=== PATIENT | female | born 1995 | race Caucasian/White ===

== ENCOUNTER 2018-05-08 19:10 | Emergency (ER) | payer OTHER, SELFPAY ==
[2018-05-08 19:20] VITALS: BP 111/74; PULSE 81; RESP 18; TEMP 37.1; O2SAT 99; BMI 19.5
[2018-05-08 19:48] LABS: Bacteria Urine None Seen
[2018-05-08] MEDS: TRIMETH/SULFA 160/800 PREPACK 1 BOTTLE MISC (19:58)
--- NOTE | 2018-05-08 19:59 | ED_ITS ---
HPI - Female Genitourinary <Nydia Duarte PA-C - Last Filed: 05/08/18 21:35> General Chief complaint: Urogenital-Female Stated complaint: States she has a UTI Time Seen by Provider: 05/08/18 19:30 Source: patient Mode of arrival: ambulatory Limitations: no limitations History of Present Illness HPI Narrative: This 23-year-old female with a history of recurrent UTI comes to ED due to urinary symptoms that started today. She has dysuria, frequency and urgency. She denies any vaginal discharge or STD concerns. She denies any flank pain, nausea or vomiting. She denies possibility of and has Nexplanon implant in her arm. Related Data Home Medications Medication Instructions Recorded Confirmed LEVONORGESTREL (MARIA T) 13.5 mg VAGINAL #0 10/26/15 Previous Rx's Medication Instructions Recorded escitalopram oxalate [Lexapro] 10 mg PO QDAY #90 tab 02/27/17 fluconazole [Diflucan] 150 mg PO QWEEK #2 tab 03/18/17 fluconazole [Diflucan] 150 mg PO PRN PRN #2 tab 06/22/17 sulfamethoxazole-trimethoprim 1 tab PO BID #10 tab 06/22/17 sulfamethoxazole-trimethoprim 1 tab PO Q12H #8 tab 05/08/18 [Bactrim DS] Review of Systems <Nydia Duarte PA-C - Last Filed: 05/08/18 21:35> Review of Systems ROS Unobtainable: All systems reviewed & are unremarkable except as noted in HPI and below Exam <Nydia Duarte PA-C - Last Filed: 05/08/18 21:35> Narrative Exam Narrative: GENERAL APPEARANCE: Patient sitting comfortably, in no distress. LUNGS: Clear to auscultation bilaterally. HEART: Rate and rhythm regular without murmur, normal S1 and S2, no S3 or S4. ABDOMEN: Soft, NT, ND, +BS x 4 quadrants, no CVAT. Initial Vital Signs Initial Vital Signs: Vital Signs Temperature 98.7 F 05/08/18 19:20 Pulse Rate 81 05/08/18 19:20 Respiratory Rate 18 05/08/18 19:20 Blood Pressure 111/74 05/08/18 19:20 Pulse Oximetry 99 05/08/18 19:20 <Mitzy Reich MD - Last Filed: 05/09/18 03:58> Initial Vital Signs Initial Vital Signs: Vital Signs Temperature 98.7 F 05/08/18 19:20 Pulse Rate 81 05/08/18 19:20 Respiratory Rate 18 05/08/18 19:20 Blood Pressure 111/74 05/08/18 19:20 Pulse Oximetry 99 05/08/18 19:20 Course <Nydia Duarte PA-C - Last Filed: 05/08/18 21:35> Additional Information: Patient called following visit requesting Diflucan in case of yeast infection on antibiotics. She has used this previously. Prescription for Diflucan 150 mg 2 tabs was called in. Orders Ordered: ED Orders 05/08/18 19:27 Urine Culture Stat Urine Microscopic Stat Discontinued Medications Trimethoprim/Sulfamethoxazole (Bactrim Ds Prepack) 1 bottle MISC SEEINSTR ONE Stop: 05/08/18 19:50 Last Admin: 05/08/18 19:58 Dose: 1 bottle Vital Signs - 8 hr 05/08/18 20:02 Temperature 98.1 F Pulse Rate 70 Respiratory Rate 16 Blood Pressure 121/74 Pulse Oximetry 98 <Mitzy Reich MD - Last Filed: 05/09/18 03:58> Orders Ordered: ED Orders 05/08/18 19:27 Urine Culture Stat Urine Microscopic Stat Discontinued Medications Trimethoprim/Sulfamethoxazole (Bactrim Ds Prepack) 1 bottle MISC SEEINSTR ONE Stop: 05/08/18 19:50 Last Admin: 05/08/18 19:58 Dose: 1 bottle Vital Signs - 8 hr 05/08/18 20:02 Temperature 98.1 F Pulse Rate 70 Respiratory Rate 16 Blood Pressure 121/74 Pulse Oximetry 98 MDM - Female Genitourinary <Nydia Duarte PA-C - Last Filed: 05/08/18 21:35> Lab Data Lab Results 05/08/18 Range/Units 19:27 Urine RBC 0-1/hpf (0-5/HPF) Urine WBC 5-10/hpf H (0-5/HPF) Amorphous Sediment 2+ Urine Bacteria None seen (None) Ur Culture Indicated? Specimen cultured Point of Care Testing Test Results Negative Urine Dip Bedside Urine Glucose Negative Bedside Urine Bilirubin - Negative Bedside Urine Ketone - Negative Urine Specific [place] 1.005 Bedside Urine Occult Blood ++ Bedside Urine pH 7.0 Bedside Urine Protein - Negative Bedside Urine Urobilinogen - Negative Bedside Urine Nitrite - Negative Bedside Urine Leukocytes ++ 125 Esterase <Mitzy Reich MD - Last Filed: 05/09/18 03:58> Lab Data Lab Results 05/08/18 Range/Units 19:27 Urine RBC 0-1/hpf (0-5/HPF) Urine WBC 5-10/hpf H (0-5/HPF) Amorphous Sediment 2+ Urine Bacteria None seen (None) Ur Culture Indicated? Specimen cultured Point of Care Testing Test Results Negative Urine Dip Bedside Urine Glucose Negative Bedside Urine Bilirubin - Negative Bedside Urine Ketone - Negative Urine Specific [place] 1.005 Bedside Urine Occult Blood ++ Bedside Urine pH 7.0 Bedside Urine Protein - Negative Bedside Urine Urobilinogen - Negative Bedside Urine Nitrite - Negative Bedside Urine Leukocytes ++ 125 Esterase Discharge Plan Departure Patient Disposition: Home Clinical Impression: UTI (urinary tract infection) Discharge Date/Time: 05/08/18 20:02 Interventions: ED Discharge Assessment Last Done: 05/08/18 20:02 Instructions: DI for Urinary Tract Infection (UTI) Activity Restrictions/Additional Instructions: Please return if you have any acutely worsening symptoms, such as fever, vomiting, or flank/kidney pain. Take her 1st dose of antibiotics tonight and 2nd in the morning. I have sent a prescription in to [facility] for you to pick up man so you can continue it tomorrow while your urine cultures are pending. Please follow-up with your PCP if you are not feeling better by Thursday. You can take your [id number] azo that you have in the past as needed for urinary pain. Prescriptions: New sulfamethoxazole-trimethoprim [Bactrim DS] 800-160 mg tablet 1 tab PO Q12H Qty: 8 RF: 0 No Action LEVONORGESTREL (MARIA T) 13.5 mg Vaginal Qty: 0 RF: 0 escitalopram oxalate [Lexapro] 10 MG tablet 10 mg PO QDAY Qty: 90 RF: 3 fluconazole [Diflucan] 150 MG tablet 150 mg PO QWEEK Qty: 2 RF: 0 fluconazole [Diflucan] 150 MG tablet 150 mg PO PRN PRNQty: 2 RF: 0 sulfamethoxazole-trimethoprim 800 MG/160 MG tablet 1 tab PO BID Qty: 10 RF: 0 Referrals: Candice Leon DO [Primary Care Provider] -
[2018-05-08 20:02] VITALS: BP 121/74; PULSE 70; RESP 16; TEMP 36.7; O2SAT 98
[2018-05-08 20:03] LABS: Amorphous Sediment Urine 2+; Culture Indicated Urine Specimen Cultured; RBC Urine 0-1/HPF (0-5/HPF); WBC Urine 5-10/HPF (0-5/HPF)
== END 2018-05-08 20:02 | disposition home or self-care (01) ==
PROVIDERS: Emergency Provider Internal Medicine; Family Provider Family Medicine; PCP Family Medicine
DX: N39.0 Urinary tract infection, site not specified (principal)
CPT/HCPCS: 81003; 81015; 81025; 87077; 87086; 87186; 99283

== ENCOUNTER 2018-05-14 15:21 | Emergency (ER) | payer OTHER, SELFPAY ==
[2018-05-14 15:25] VITALS: BP 118/78; PULSE 89; RESP 16; TEMP 36.3; O2SAT 99
== END 2018-05-14 17:11 | disposition admitted as inpatient to this hospital (09) ==
PROVIDERS: Emergency Provider Emergency Medicine; Family Provider Family Medicine; PCP Family Medicine
DX: K13.79 Other lesions of oral mucosa (principal)
CPT/HCPCS: 99281; 99282

== ENCOUNTER → 2018-07-21 16:10 | Outpatient (CLI) | payer OTHER, SELFPAY | PROVIDERS: Family Provider Family Medicine; PCP Family Medicine; Visit Provider Family Medicine ==

== ENCOUNTER 2018-08-04 06:19 | Emergency (ER) | payer OTHER, SELFPAY ==
[2018-08-04 06:20] VITALS: BP 121/70; PULSE 76; RESP 18; TEMP 37; O2SAT 100
--- NOTE | 2018-08-04 06:42 | ED_ITS ---
HPI - Abdominal Pain General Chief Complaint: Abdominal Pain Stated Complaint: Abdominal pain since this morning Time Seen by Provider: 08/04/18 06:25 Source: patient Mode of arrival: ambulatory Limitations: no limitations History of Present Illness HPI narrative: Patient is a 23-year-old female here for evaluation of midline lower abdomen pain. She states that she noticed it yesterday. She states it was a fairly sudden onset however worsened as the day went on. No urinary symptoms. Has had some vaginal discharge over the past couple days. No change in bowel habits. No prior abdominal surgeries. States she went to sleep last night with the symptoms. Woke up with the symptoms this morning. She states that her and her boyfriend attempted to have intercourse this morning in the lower abdominal pain worsen. She also complains of nausea but no vomiting. patient did have a diagnosis of chlamydia when she was 18. She states that her symptoms do not feel like a urinary tract infection Related Data Previous Rx's Medication Instructions Recorded aripiprazole 5 mg tablet 5 mg PO DAILY #90 tab 06/14/18 cholecalciferol (vitamin D3) 2,000 2,000 unit PO DAILY #90 cap 06/14/18 unit capsule escitalopram 10 mg tablet 10 mg PO QDAY #90 tab 06/14/18 hydrocodone-acetaminophen [[place]ills] 1 tab PO Q6H PRN #10 tab 08/04/18 Allergies Allergy/AdvReac Type Severity Reaction Status Date / Time No Known Drug Allergies Allergy Verified 06/14/18 13:47 Review of Systems Constitutional Denies fever(s) and Denies headache(s) ENT Ears, Nose, Mouth, and Throat: Denies headache(s) Cardiovascular Denies chest pain and Denies dyspnea Respiratory Denies dyspnea Gastrointestinal Gastrointestinal: Reports abdominal pain, Denies change in stool character, Reports nausea and Denies vomiting Genitourinary Denies dysuria, Denies flank pain, Denies urinary incontinence, Denies urinary hesitancy, Denies urinary urgency and Reports vaginal discharge Integumentary/Breasts Denies rash Neurologic Denies headache(s) Hematologic/Lymphatic Denies easy bleeding and Denies easy bruising [facility] Medical History History of malignant melanoma (10/26/15) Tobacco use disorder (10/26/15) Anxiety (11/16/15) Gastroesophageal reflux disease (12/12/16) Recurrent urinary tract infection (12/12/16) Social History Smoking Status: Former smoker Exam Initial Vital Signs Initial Vital Signs: Vital Signs Temperature 98.6 F 08/04/18 06:20 Pulse Rate 76 08/04/18 06:20 Respiratory Rate 18 08/04/18 06:20 Blood Pressure 121/70 08/04/18 06:20 Pulse Oximetry 100 08/04/18 06:20 Const General: cooperative, well developed, well groomed and No acute distress Orientation: alert, awake and oriented x3 HENMT Head: normal to inspection and normocephalic Resp Effort & Inspection: normal respiratory effort Cardio Rate: regular rate GI Inspection: non-distended Palpation: soft, No firm and tender (Midline lower abdomen.) Back/Spine/Pelvis Back: No CVA tenderness Skin Lesions: no lesions Rashes: no rashes Neuro General: alert and awake Cognition: normal cognition Speech: speech normal Extrem General: normal to inspection and capillary refill normal Psych Affect: indifferent and other (Flat affect) Course Orders Ordered: Discontinued Medications Hydrocodone Bitart/Acetaminophen ([place] 5/325) 1 tab PO NOW ONE Stop: 08/04/18 07:19 Last Admin: 08/04/18 07:22 Dose: 1 tab Vital Signs - 8 hr 08/04/18 06:20 Temperature 98.6 F Pulse Rate 76 Respiratory Rate 18 Blood Pressure 121/70 Pulse Oximetry 100 MDM - Abdominal Pain Lab Data Lab Results 08/04/18 08/04/18 Range/Units 06:25 07:15 Urine Color Yellow Urine Appearance Clear Urine pH 5.5 (4.5-8.0) Ur Specific [place] 1.025 (1.000-1.035) Urine Protein Negative (Negative) Urine Glucose (UA) Negative (Negative) g/dL Urine Ketones Negative (NEGATIVE) Urine Occult Blood Negative (Negative) Urine Nitrate Negative (Negative) Urine Bilirubin Negative (NEGATIVE) Urine Urobilinogen 0.2 (0.2) E.U./dL Ur Leukocyte Esterase Negative (NEGATIVE) Urine RBC 0-1/hpf (0-5/HPF) Urine WBC 1-5/hpf (0-5/HPF) Urine Bacteria Few (2-10) H (None) Urine Mucus 3+ H (Negative) Ur Culture Indicated? Specimen cultured Ur Chlamydia DNA (PCR) Not detected N gonorrhoeae DNA (PCR) Not detected Point of care testing: Point of Care Testing Test Results Negative Urine Dip Bedside Urine Glucose Negative Bedside Urine Bilirubin - Negative Bedside Urine Ketone +/- 5 Urine Specific [place] 1.030 Bedside Urine Occult Blood - Negative Bedside Urine pH 5.5 Bedside Urine Protein +/- 15 Bedside Urine Urobilinogen +/- 1mg Bedside Urine Nitrite - Negative Bedside Urine Leukocytes +/- 15 Esterase MDM Narrative Medical decision making narrative: Patient does have a history of urinary tract infections she states this does not feel like prior infection. Her urinalysis today not consistent with the UTI. Pelvic ultrasound ordered. GC and chlamydia ordered as well. Care turned over to day provider at change of shift. Discharge Plan Departure Patient Disposition: Home Clinical Impression: Ovarian cyst rupture Discharge Date/Time: 08/04/18 09:30 Interventions: ED Discharge Assessment Last Done: 08/04/18 09:27 Instructions: DI for Ovarian Cyst Activity Restrictions/Additional Instructions: Your ultrasound shows that you have a ruptured ovarian cyst on the right. There is some fluid from this that has leaked down into your pelvis, and the combination of these things is most likely the cause of your pain. The pain often lasts for 1-3 days, and then resolves on its own. The cyst may form again, or it may be gone for good. No cyst was noted on your left side. If you have ongoing trouble with this, then you will need to follow up with the [facility]. You may take the pain medication, in the meantime, as needed. Prescriptions: New hydrocodone-acetaminophen [Mills] 5-325 mg tablet 1 tab PO Q6H PRN (Reason: pain) Qty: 10 RF: 0 No Action escitalopram oxalate [Lexapro] 10 mg tablet 10 mg PO QDAY Qty: 90 RF: 3 aripiprazole [Abilify] 5 mg tablet 5 mg PO DAILY Qty: 90 RF: 1 cholecalciferol (vitamin D3) 2,000 unit capsule 2,000 unit PO DAILY Qty: 90 RF: 3 Referrals: Marina Monteiro MD [Physician] - Candice Leon DO [Primary Care Provider] -
[2018-08-04 06:45] LABS: Appearance Urine UA CLEAR; Bilirubin Urine UA NEGATIVE (NEGATIVE); Color Urine UA YELLOW; Glucose Urine UA NEGATIVE (Negative); Ketones Urine UA NEGATIVE (NEGATIVE); Leukocyte Esterase Urine UA NEGATIVE (NEGATIVE); Nitrite Urine UA NEGATIVE (Negative); Occult Blood Urine UA NEGATIVE (Negative); Protein Urine UA NEGATIVE (Negative); Specific Gravity Urine UA 1.025 (1.000-1.035); Urobilinogen Urine UA 0.2 E.U./dL (0.2); pH Urine UA 5.5 (4.5-8.0)
[2018-08-04 07:13] LABS: Bacteria Urine Few (2-10); Culture Indicated Urine Specimen Cultured; Mucus Urine 3+ (Negative); RBC Urine 0-1/HPF (0-5/HPF); WBC Urine 1-5/HPF (0-5/HPF)
--- NOTE | 2018-08-04 07:16 | DI.US.S_ITS ---
PROCEDURE: US PELVIC COMPLETE INDICATIONS: PAIN TECHNIQUE: Real-time scanning was performed of the pelvic organs, with image documentation. Additional endovaginal scanning was necessary due to incomplete visualization of the adnexal and endometrial structures by transabdominal scanning. COMPARISON: None. FINDINGS: Transabdominal scanning: Limited scanning through the kidneys shows no hydronephrosis. No pathologic free abdominal or pelvic fluid. Endovaginal scanning: Uterus: Uterus is normal in size at 8.0 x 3.5 x 4.5 cm. The endometrium measures 4.0 mm in combined thickness. Ovaries: Involuting physiologic right ovarian cyst measuring 1.7 x 1.1 x 2.0 cm; otherwise normal ovaries. Mild amount of anechoic free fluid within the posterior cul-de-sac. IMPRESSION: Regressing physiologic cyst involving the right ovary and mild amount of simple free fluid within the posterior cul-de-sac. Dictated by: Nirav HAN Interpreted: Zoran Youngblood MD on 08/04/2018 at 8:32 Approved by: Zoran Youngblood M.D. on 08/04/2018 at 11:06
[2018-08-04] MEDS: HYDROCODONE/ACET 5/325 TABLET 1 TAB PO (07:22)
[2018-08-04 08:49] LABS: Urine N gonorrhoeae NOT DETECTED
[2018-08-04 08:54] LABS: Urine Chlamydia NOT DETECTED
[2018-08-04 09:13] VITALS: BP 98/58; PULSE 70; RESP 17; TEMP 36.8; O2SAT 99
--- NOTE | 2018-08-04 09:30 | PC.NURSE ---
Note for school provided by
== END 2018-08-04 09:30 | disposition home or self-care (01) ==
PROVIDERS: Emergency Medicine; Emergency Provider Emergency Medicine; Family Provider Family Medicine; PCP Family Medicine
DX: N83.209 Unspecified ovarian cyst, unspecified side (principal); R11.0 Nausea
CPT/HCPCS: 76830; 76856; 81001; 81003; 81025; 87086; 87491; 87591; 99283

== ENCOUNTER 2018-08-07 20:18 | Emergency (ER) | payer OTHER, SELFPAY ==
[2018-08-07 20:20] VITALS: BP 123/79; PULSE 90; RESP 20; TEMP 37.4; O2SAT 100
--- NOTE | 2018-08-07 20:58 | ED.FEMALEGU ---
HPI - Female Genitourinary <Nydia Duarte PA-C - Last Filed: 08/07/18 22:05> General Chief complaint: Urogenital-Female Stated complaint: abdominal pain, states she has a cyst Time Seen by Provider: 08/07/18 20:25 Source: patient Mode of arrival: ambulatory Limitations: no limitations History of Present Illness HPI Narrative: This 23-year-old female was seen here 3 days ago with abdominal pain and ruptured ovarian cyst. She states she did not call her PCP for follow-up. She states that she was doing okay earlier today, had sex and then had severe pain with 2 episodes of vomiting. She states that she called the nurse line and was advised to come here. Pain is in the same area, very lower abdomen and pelvic area. She states that pain is better now. Nausea is better now. She has not had recurrent vomiting since arrival. She denies any new symptoms such as fever today, has had maybe some slight chills in the course of this. She has not had new or changed pain. She has not had any new vaginal discharge or bleeding. No new urinary symptoms or other new complaints today on systems review. She did try to take 1 of her pain pills afterwards and kept it down but felt nauseous. Related Data Previous Rx's Medication Instructions Recorded aripiprazole 5 mg tablet 5 mg PO DAILY #90 tab 06/14/18 cholecalciferol (vitamin D3) 2,000 2,000 unit PO DAILY #90 cap 06/14/18 unit capsule escitalopram 10 mg tablet 10 mg PO QDAY #90 tab 06/14/18 hydrocodone-acetaminophen [[place]] 1 tab PO Q6H PRN #10 tab 08/04/18 Allergies Allergy/AdvReac Type Severity Reaction Status Date / Time No Known Drug Allergies Allergy Verified 06/14/18 13:47 Review of Systems <Nydia Duarte PA-C - Last Filed: 08/07/18 22:05> Review of Systems ROS Unobtainable: All systems reviewed & are unremarkable except as noted in HPI and below PFSH <Nydia Duarte PA-C - Last Filed: 08/07/18 22:05> Medical History (Updated 08/07/18 @ 21:51 by Nydia Duarte PA-C) History of malignant melanoma (10/26/15) Tobacco use disorder (10/26/15) Anxiety (11/16/15) Gastroesophageal reflux disease (12/12/16) Recurrent urinary tract infection (12/12/16) Surgical History (Updated 08/07/18 @ 21:22 by Nydia Duarte PA-C) No history of previous surgery (Acute) Family History Other Family history non-contributory Social History Smoking Status: Former smoker Social History Smoking Status: Former smoker Exam <Nydia Duarte PA-C - Last Filed: 08/07/18 22:05> Narrative Exam Narrative: GENERAL APPEARANCE: Patient sitting comfortably, in no distress. HEENT: PERRL, EOMI, no scleral icterus NECK: Supple LUNGS: Clear to auscultation bilaterally. HEART: Rate and rhythm regular, normal S1 and S2, no S3 or S4. ABDOMEN: Soft, nondistended, bowel sounds present x 4 quadrants, no masses palpable, no hepatosplenomegaly. moderate suprapubic tenderness without guarding or rebound, no CVAT. EXTREMITIES: No edema DERMATOLOGIC: No jaundice or exanthem NEUROLOGIC: Alert and oriented with normal speech and coordination Initial Vital Signs Initial Vital Signs: Vital Signs Temperature 99.3 F 08/07/18 20:20 Pulse Rate 90 08/07/18 20:20 Respiratory Rate 20 08/07/18 20:20 Blood Pressure 123/79 08/07/18 20:20 Pulse Oximetry 100 08/07/18 20:20 <Abelardo Cherry DO - Last Filed: 08/08/18 01:56> Initial Vital Signs Initial Vital Signs: Vital Signs Temperature 99.3 F 08/07/18 20:20 Pulse Rate 90 08/07/18 20:20 Respiratory Rate 20 08/07/18 20:20 Blood Pressure 123/79 08/07/18 20:20 Pulse Oximetry 100 08/07/18 20:20 Course <Nydia Duarte PA-C - Last Filed: 08/07/18 22:05> Additional Information: Patient reports feeling significantly improved during her stay, no recurrent vomiting, pain is better. She was feeling better earlier today, pain likely secondary to intercourse with existing free fluid/inflammation related to recently ruptured cyst. She was given Zofran for at home if needed, she has [place] at home if needed. She agreed to return if any acutely worsening symptoms or changes again, otherwise will follow up with PCP next week Orders Ordered: Discontinued Medications Hydrocodone Bitart/Acetaminophen ([place] 5/325) 1 tab PO NOW ONE Stop: 08/07/18 21:05 Last Admin: 08/07/18 21:11 Dose: 1 tab Ondansetron HCl (Zofran Odt) 4 mg SL NOW ONE Stop: 08/07/18 21:05 Last Admin: 08/07/18 21:12 Dose: 4 mg Ondansetron HCl (Zofran Odt Prepack) 1 bottle MISC SEEINSTR ONE Stop: 08/07/18 21:47 Last Admin: 08/07/18 22:03 Dose: 1 bottle Vital Signs - 8 hr 08/07/18 20:20 Temperature 99.3 F Pulse Rate 90 Respiratory Rate 20 Blood Pressure 123/79 Pulse Oximetry 100 Repeat temp prior to discharge 98.1 <Abelardo Cherry DO - Last Filed: 08/08/18 01:56> Orders Ordered: Discontinued Medications Hydrocodone Bitart/Acetaminophen ([place] 5/325) 1 tab PO NOW ONE Stop: 08/07/18 21:05 Last Admin: 08/07/18 21:11 Dose: 1 tab Ondansetron HCl (Zofran Odt) 4 mg SL NOW ONE Stop: 08/07/18 21:05 Last Admin: 08/07/18 21:12 Dose: 4 mg Ondansetron HCl (Zofran Odt Prepack) 1 bottle MISC SEEINSTR ONE Stop: 08/07/18 21:47 Last Admin: 08/07/18 22:03 Dose: 1 bottle Vital Signs - 8 hr 08/07/18 20:20 Temperature 99.3 F Pulse Rate 90 Respiratory Rate 20 Blood Pressure 123/79 Pulse Oximetry 100 Discharge Plan Departure Patient Disposition: Home Clinical Impression: Pelvic pain Vomiting Qualifiers: Vomiting type: unspecified Vomiting Intractability: non-intractable Nausea presence: with nausea Qualified Code(s): R11.2 - Nausea with vomiting, unspecified Discharge Date/Time: 08/07/18 22:08 Interventions: ED Discharge Assessment Last Done: 08/07/18 22:07 Instructions: DI for Pelvic Pain, Nausea and Vomiting-Adult Activity Restrictions/Additional Instructions: Please return as we discussed if you have any acutely worsening symptoms, or new symptoms such as persistent vomiting or fever. Otherwise, please take the nausea medicine that we gave you up to every 8 hours if you need it, and continue your pain medicine that you already have if needed. Please avoid sex until you are feeling well as it may take the fluid in your pelvis from the cyst some time to reabsorb. Please call your PCP on Thursday and arrange follow-up next week to make sure that you are feeling better as expected. Prescriptions: No Action escitalopram oxalate [Lexapro] 10 mg tablet 10 mg PO QDAY Qty: 90 RF: 3 aripiprazole [Abilify] 5 mg tablet 5 mg PO DAILY Qty: 90 RF: 1 cholecalciferol (vitamin D3) 2,000 unit capsule 2,000 unit PO DAILY Qty: 90 RF: 3 hydrocodone-acetaminophen [[place]] 5-325 mg tablet 1 tab PO Q6H PRN (Reason: pain) Qty: 10 RF: 0 Referrals: Candice Leon DO [Primary Care Provider] - <Abelardo Cherry DO - Last Filed: 08/08/18 01:56> Cosign ED Attending Migdalia Attestation: I was immediately available in the department for consultation. Documentation has been reviewed. I agree with assessment and plan.
[2018-08-07] MEDS: HYDROCODONE/ACET 5/325 TABLET 1 TAB PO (21:11)
[2018-08-07] MEDS: ONDANSETRON 4 MG ODT SL (21:12)
[2018-08-07] MEDS: ONDANSETRON 4 MG ODT PREPACK 1 BOTTLE MISC (22:03)
--- NOTE | 2018-08-09 17:17 | CM.SWNOTE ---
Follow up call JOB ANALYST called pt for a Emergency Dept follow up call. Pt stated that she was still not feeling well, but has followed up and called her PCP. She is awaiting a return call. She is aware that she can return to the ED if necessary and was appreciative of the call.
== END 2018-08-07 22:08 | disposition home or self-care (01) ==
PROVIDERS: Emergency Provider Internal Medicine; PCP Family Medicine
DX: R10.2 Pelvic and perineal pain (principal); R11.2 Nausea with vomiting, unspecified
CPT/HCPCS: 99282; 99283

== ENCOUNTER 2018-10-29 09:59 | Day surgery (SDC) | payer OTHER, SELFPAY ==
[2018-10-13 08:24] VITALS: BMI 19.8
[2018-10-29] VITALS (9 sets, daily range): BP systolic 104–118; BP diastolic 60–81; PULSE 61–98; RESP 10–15; TEMP 36.3–37.1; O2SAT 96–100; BMI 21.4
[2018-10-29] MEDS: LACTATED RINGERS 1,000 ML 42 ML IV (10:34)
--- NOTE | 2018-10-29 10:56 | PM.HP.1 ---
History of Present Illness Date Patient Seen: 10/29/18 Time Patient Seen: 10:56 Chief complaint: [id number] PELVIC Narrative: Patient is a 23-year-old with a right ovarian cyst and pelvic pain She is here for a laparoscopic removal of right ovarian cyst and possible fulguration of endometriosis Patient History Medical History (Updated 10/13/18 @ 08:33 by Martina Ritchie RN) History of malignant melanoma (10/26/15) Tobacco use disorder (10/26/15) Anxiety (11/16/15) Gastroesophageal reflux disease (12/12/16) Recurrent urinary tract infection (12/12/16) Depression (Acute) Surgical History (Updated 08/07/18 @ 21:22 by Nydia Duarte PA-C) No history of previous surgery (Acute) Family History Other Family history non-contributory Social History household members: significant other Smoking Status: Former smoker Family & Social History Social History: household members significant other Tobacco & Substance use: Smoking Status Former smoker alcohol intake frequency 0-2 drinks per day Substance Use Type marijuana Meds Home Medications Medication Instructions Recorded Confirmed Type cholecalciferol (vitamin D3) 2,000 2,000 unit PO DAILY #90 cap 09/20/18 10/29/18 Rx unit capsule aripiprazole 5 mg tablet 5 mg PO DAILY #90 tab 10/27/18 10/29/18 Rx escitalopram 10 mg tablet 10 mg PO QDAY #90 tab 10/27/18 10/29/18 Rx oxycodone-acetaminophen [Percocet] 1 tab PO Q4-6H PRN #20 tab 10/29/18 Rx Allergies Allergy/AdvReac Type Severity Reaction Status Date / Time No Known Drug Allergies Allergy Verified 10/29/18 10:17 Exam Vital Signs (past 8 hours): - 10/29/18 10:22 Temperature 98.8 F Pulse Rate 84 Respiratory Rate 15 Blood Pressure 117/71 Pulse Oximetry 100 Oxygen Delivery Method Room Air Narrative Exam Narrative: HEENT: No thyromegaly, no anterior cervical or supraclavicular lymphadenopathy. Lungs:Clear to auscultation bilaterally, no wheezes. Cardiovascular: Regular rate and rhythm, no murmurs, rubs, or gallops. Abdomen: No scars. No hepatosplenomegaly. No masses palpable. External genitalia: Normal Vagina: Normal Cervix: Normal Bimanual exam: 6 Week size uterus. Mobile. Rectal: No masses. Assessment & Plan Assessment & Plan narrative: Assessment: 23-year-old with a right ovarian cyst, dyspareunia, and pelvic pain Plan: Diagnostic laparoscopy with excision of right ovarian cyst and possible fulguration of endometriosis The risks, benefits, and alternatives to the procedure were explained to the patient. The risks including bleeding, infection, injury to the bowel, bladder, or ureters. She understands these risks and agrees to proceed. A full par Q was held and consent form was signed Time Spent With Patient Time with patient: 15-24 minutes
--- NOTE | 2018-10-29 10:58 | PM.PREOP ---
Pre-operative Note Interval Note History & Physical reviewed/Exam performed by Physician: Yes Changes to H&P: No
--- NOTE | 2018-10-29 11:18 | SUR.OPER ---
Lithotomy on padded OR bed, head on pillow, arms secured on padded arm boards at <90 degrees abduction. Legs secured in padded yellow fins stirrups.
[2018-10-29] MEDS: BUPIVACAINE 0.5% W/ EPI (PF) VIAL 30 ML INJ (11:28)
[2018-10-29] MEDS: HYDROMORPHONE 2 MG INJ 0.5 MG IV ×4 (11:59→12:26)
--- NOTE | 2018-10-29 12:03 | SUR.PHASEI ---
1159 Tearful, states that she is having pelvic pain 12/14. Reassured, calms when spoken to. Asking questions of Dr. Reeves. Skin warm and dry, Resp even and regular, denies nausea.
[2018-10-29] MEDS: OXYCODONE/ACETAMINOPHEN 5/325 TABLET 1 TAB PO (12:12)
--- NOTE | 2018-10-29 12:23 | SUR.PHASEI ---
HOB elevated, calm, tolerating PO well.
--- NOTE | 2018-10-29 12:28 | SUR.PHASEI ---
1226 rates pain at a 5, no longer improving, IV rx given per patient desire. No nausea, VSS. Stable
--- NOTE | 2018-10-29 12:48 | SUR.PHASEI ---
Drowsy, relaxed, pain 3/10; no nausea, No drainage at sites or vaginally. Stable. Preparing to transfer to [facility].
--- NOTE | 2018-11-03 06:27 | P.OP_ITS ---
Operative Date/Time/Diagnoses Date of procedure: 10/29/18 Time of procedure: 12:45 Pre-op diagnosis: Pelvic pain Dyspareunia Dysmenorrhea Right ovarian cyst Left ovarian cyst Post-op diagnosis: same Procedure: Procedures Operation Date: 10/29/18 11:15 Actual Procedures Side Surgeon p Laparoscopy, Aspiration of right ovarian cyst, cauterization left ovarian cyst Dedra Washington MD Indications: Pelvic pain Dyspareunia Dysmenorrhea Bilateral ovarian cyst Surgeon: Dedra aWshington Anesthesia Type: General Operative Notes Findings: Six week size anteverted uterus. There was a possible extra horn on t he left side of the uterus. 4 cm right ovarian cyst. 1 cm left ovarian cyst. Normal liver and gallbladder. Normal appendix. Closure Type: primary Estimated blood loss (mL): 5 Blood products transfused: none Procedure in detail: After informed consent was obtained, the patient was taken to the operating room where she was placed in the dorsal supine position. After adequate general endotracheal anesthesia was achieved, she was placed in the dorsal lithotomy position, and prepped and draped in the usual sterile fashion. A time-out was performed. A bivalve speculum was placed into the vagina and the anterior lip of the cervix was grasped with a single-tooth tenaculum. The cervical os was sequentially dilated until the Zumi uterine manipulator could pass easily into the endometrial cavity. The single-tooth tenaculum was removed from the anterior lip of the cervix. The bivalve speculum was removed from the vagina. Attention was then turned to the abdomen where 6 cc of 0.5% Marcaine with epinephrine were injected in the umbilical fold. A 5 mm incision was made. The Veress needle was placed into the peritoneal cavity, and its placement confirmed by aspiration drop test. The abdominal cavity was insufflated with 3.2 L of CO2. The Veress needle was removed, and a 5 mm trocar was placed without difficulty. A 2nd incision was made after 6 cc of 0.5% Marcaine with epinephrine were injected above the pubic symphysis. A 2nd 5 mm trocar was placed without difficulty. A 3rd incision was made on the left side midway between the pubic symphysis and umbilicus. A 3rd 5 mm trocar was placed under direct visualization. Using the probe both ovaries were identified. On the left side the cyst was grasped and excised with the PlasmaKinetic was settings at 40 w. On the right side there was a simple cyst measuring 4 cm. This was aspirated of approximately 12 cc of clear fluid. The cyst was cauterized once it was collapsed. There was no evidence of endometriosis in the anterior or posterior cul-de-sacs, or bilateral ovarian fossas. The instruments were removed from the abdomen. The CO2 was allowed to escape. The incisions were repaired with 4 0 Biosyn in a subcuticular fashion. Steri-Strips, 2 x 2, and op site were placed. The Zumi uterine manipulator was removed from the uterus. Sponge, lap, and instrument counts were correct x2. The patient tolerated the procedure well, and was taken to PACU in stable condition. Complications: none Post-operative Condition: stable Disposition: PACU Plan for aftercare: Home after recovery
== END 2018-10-29 13:06 | disposition home or self-care (01) ==
PROVIDERS: PCP Family Medicine; Visit Provider Obstetrics & Gynecology
PROC: (CPT 49320; principal; 2018-10-29 11:15)
DX: R10.2 Pelvic and perineal pain (principal); N94.10 Unspecified dyspareunia; N94.6 Dysmenorrhea, unspecified; N83.201 Unspecified ovarian cyst, right side; N83.202 Unspecified ovarian cyst, left side
CPT/HCPCS: 58662; 49322; J1100; J1170; J1885; J2250; J2405; J2704; J3010

== ENCOUNTER 2018-10-30 06:53 | Emergency (ER) | payer OTHER, SELFPAY ==
[2018-10-30 06:59] VITALS: BP 130/7; PULSE 75; RESP 18; TEMP 37.3; O2SAT 100
[2018-10-30 07:35] LABS: Bacteria Urine Moderate (10-30); Culture Indicated Urine Specimen Cultured; RBC Urine 1-5/HPF (0-5/HPF); Squamous Epithelial Cell Urine 1-5 /HPF (0-5/HPF); WBC Urine 5-10/HPF (0-5/HPF)
--- NOTE | 2018-10-30 07:38 | ED.FEMALEGU ---
HPI - Female Genitourinary General Chief complaint: Urogenital-Female Stated complaint: UTI Time Seen by Provider: 10/30/18 07:30 Source: patient Mode of arrival: ambulatory Limitations: no limitations History of Present Illness HPI Narrative: Patient is a 23-year-old female who presents with painful urination. She has a history of frequent UTIs this feels similar. She actually had an ovarian cyst removed yesterday she still has some pain in her abdomen but mostly pain she says into urinates. She vomited once about 12 hours after surgery she still feels a little nauseous but no further vomiting or fever. MD Complaint: dysuria and UTI Related Data Previous Rx's Medication Instructions Recorded cholecalciferol (vitamin D3) 2,000 2,000 unit PO DAILY #90 cap 09/20/18 unit capsule aripiprazole 5 mg tablet 5 mg PO DAILY #90 tab 10/27/18 escitalopram 10 mg tablet 10 mg PO QDAY #90 tab 10/27/18 oxycodone-acetaminophen [Percocet] 1 tab PO Q4-6H PRN #20 tab 10/29/18 ciprofloxacin HCl [Cipro] 500 mg PO Q12H #14 tab 10/30/18 fluconazole [Diflucan] 200 mg PO DAILY #1 tab 10/30/18 ondansetron 4 mg PO Q6-8H PRN #10 tab 10/30/18 Allergies Allergy/AdvReac Type Severity Reaction Status Date / Time No Known Drug Allergies Allergy Verified 10/29/18 10:17 Review of Systems Review of Systems GENERAL: Denies chills, fatigue, malaise, fever, sweats, travel HEENT: Denies sinus pain, ear pain, sore throat, difficulty swallowing, neck pain RESPIRATORY: Denies dyspnea, cough, wheezing, hemoptysis, sputum. CARDIOVASCULAR: Denies chest pain, palpitations, orthopnea, edema GASTROINTESTINAL: See HPI : See HPI MUSCULOSKELETAL: Denies weakness, joint pain, or bony pain SKIN: No rash, no erythema, no pruritus NEUROLOGIC: Denies weakness, dizziness, headache, numbness, change in speech, confusion PSYCHIATRIC: No concerning psychosocial issues. 12 point review of systems is negative except for those stated above and HPI [facility] Medical History History of malignant melanoma (10/26/15) Tobacco use disorder (10/26/15) Anxiety (11/16/15) Gastroesophageal reflux disease (12/12/16) Recurrent urinary tract infection (12/12/16) Depression (Acute) Surgical History No history of previous surgery (Acute) Family History Other Family history non-contributory Social History household members: significant other Smoking Status: Former smoker Family History Other Family history non-contributory Social History household members: significant other Smoking Status: Former smoker Exam Initial Vital Signs Initial Vital Signs: Vital Signs Temperature 99.1 F 10/30/18 06:59 Pulse Rate 75 10/30/18 06:59 Respiratory Rate 18 10/30/18 06:59 Blood Pressure 130/7 L 10/30/18 06:59 Pulse Oximetry 100 10/30/18 06:59 GENERAL: Well-appearing, well-nourished and in no acute distress. HEENT: Head atraumatic,EOMI, pupils reactive, face symmetric CARDIOVASCULAR: Regular rate and rhythm without murmurs, rubs or gallops. RESPIRATORY: Breath sounds equal bilaterally, no wheezes rales or rhonchi. ABDOMEN: Soft, mild diffuse tenderness no guarding no rebound no distention. Normoactive bowel sounds all 4 quadrants. No guarding or rebound. Incisions sites noted clean and dry bandages still place : No CVA tenderness EXTREMITIES: Normal range of motion, no clubbing or edema. Neurovascularly intact NEUROLOGICAL: Alert and oriented x4.Normal gait and speech. Cranial nerves II through XII grossly intact. SKIN: Warm, dry, no laceration, no petechiae, no rashes or lesions. Course Orders Ordered: ED Orders 10/30/18 07:20 Urine Culture Stat Urine Microscopic Stat Vital Signs - 8 hr 10/30/18 06:59 Temperature 99.1 F Pulse Rate 75 Respiratory Rate 18 Blood Pressure 130/7 L Pulse Oximetry 100 MDM - Female Genitourinary Lab Data Lab Results 10/30/18 Range/Units 07:20 Urine RBC 1-5/hpf (0-5/HPF) Urine WBC 5-10/hpf H (0-5/HPF) Ur Squamous Epith Cells 1-5 /hpf (0-5/HPF) Urine Bacteria Moderate (10-30) H (None) Ur Culture Indicated? Specimen cultured Point of Care Testing Test Results Negative Urine Dip Bedside Urine Glucose Negative Bedside Urine Bilirubin - Negative Bedside Urine Ketone - Negative Urine Specific [place] 1.010 Bedside Urine Occult Blood +++ Bedside Urine pH 6.5 Bedside Urine Protein - Negative Bedside Urine Urobilinogen - Negative Bedside Urine Nitrite - Negative Bedside Urine Leukocytes +++ 500 Esterase [facility] Narrative Medical decision making narrative: Patient states that the from his work for her multiple times past. Her last UTI was in July 2018. Discharge Plan Departure Patient Disposition: Home Clinical Impression: UTI (urinary tract infection) Qualifiers: Urinary tract infection type: acute cystitis Hematuria presence: with hematuria Qualified Code(s): N30.01 - Acute cystitis with hematuria Instructions: DI for Urinary Tract Infection (UTI) Activity Restrictions/Additional Instructions: *You have been diagnosed with UTI *What to do: Increased fluid intake *Continue to take medications as directed Cipro 500 mg twice a day for 7 days Diflucan 200 mg after he finished Cipro Zofran 4 mg every 6-8 hours if needed for nausea or vomiting By radium 200 mg every 8 hours if needed for painful urination *Follow up with your primary care provider in 2-3 days *Return to ER if you should have increasing abdominal pain, fevers, persistent vomiting or any new, worsening or concerning symptoms Prescriptions: New fluconazole [Diflucan] 200 mg tablet 200 mg PO DAILY Qty: 1 RF: 0 ciprofloxacin HCl [Cipro] 500 mg tablet 500 mg PO Q12H Qty: 14 RF: 0 ondansetron 4 mg tablet,disintegrating 4 mg PO Q6-8H PRN (Reason: nausea and vomiting) Qty: 10 RF: 0 No Action cholecalciferol (vitamin D3) 2,000 unit capsule 2,000 unit PO DAILY Qty: 90 RF: 3 aripiprazole [Abilify] 5 mg tablet 5 mg PO DAILY Qty: 90 RF: 1 escitalopram oxalate [Lexapro] 10 mg tablet 10 mg PO QDAY Qty: 90 RF: 1 oxycodone-acetaminophen [Percocet] 5-325 mg tablet 1 tab PO Q4-6H PRN (Reason: pain) Qty: 20 RF: 0 Referrals: Candice Leon DO [Primary Care Provider] -
[2018-10-30 08:20] VITALS: TEMP 36.9
== END 2018-10-30 08:21 | disposition home or self-care (01) ==
PROVIDERS: Emergency Provider Emergency Medicine; PCP Family Medicine
DX: N30.01 Acute cystitis with hematuria (principal)
CPT/HCPCS: 81003; 81015; 81025; 87077; 87086; 87186; 99282; 99283

== ENCOUNTER → 2019-06-20 10:19 | Outpatient (CLI) | payer OTHER, SELFPAY | PROVIDERS: PCP Family Medicine; Visit Provider Family Medicine | DX: N39.0 Urinary tract infection, site not specified (principal) | CPT/HCPCS: 87086 ==

== ENCOUNTER → 2019-06-22 14:12 | Outpatient (CLI) | payer OTHER, SELFPAY ==
[2019-06-22 14:47] LABS: Add Manual Diff / Slide Review NO; Basophils Absolute Auto 0 /uL (0-100); Basophils Percent Auto 0.8 % (0-2); Eosinophils Absolute Auto 100 /uL (0-450); Eosinophils Percent Auto 1.3 % (2-4); Hematocrit 39.1 % (36-46); Hemoglobin 13.3 g/dL (12.0-16.0); Lymphocytes Absolute Auto 1900 /uL (1100-4500); Lymphocytes Percent Auto 31.3 % (25-40); Mean Corpuscular HGB Conc 33.9 % (30-36); Mean Corpuscular Hemoglobin 30.7 PG (26-34); Mean Corpuscular Volume 90.7 fL (80-100); Monocytes Absolute Auto 600 /uL (0-900); Neutrophils Absolute Auto 3400 /uL (1500-7000); Neutrophils Percent Auto 56.6 % (50-75); Platelet Count 287 X10^3/uL (150-400); Red Blood Cell Count 4.32 X10^6/uL (4.0-5.2); Red Cell Distribution Width 12.4 % (11.6-14.8)
[2019-06-22 14:59] LABS: Hemoglobin A1C% w Est Avg Glu 4.9 % (4.0-6.0)
[2019-06-22 15:52] LABS: Free T3, Triiodothyronine Free 2.87 pg/mL (2.77-5.27); Free T4, Direct Thyroxine 0.74 ng/dL (0.78-2.19)
[2019-06-22 16:05] LABS: Thyroid Stimulating Hormone 4.13 uIU/mL (0.47-4.68)
== END ==
PROVIDERS: PCP Family Medicine; Referring Provider Family Medicine; Visit Provider Family Medicine
DX: M81.0 Age-related osteoporosis without current pathological fracture (principal); R63.5 Abnormal weight gain
CPT/HCPCS: 36415; 83036; 84439; 84443; 84481; 85025

== ENCOUNTER → 2019-06-28 09:15 | Outpatient (CLI) | payer OTHER, SELFPAY ==
[2019-06-28 10:05] LABS: Appearance Urine UA CLEAR; Bilirubin Urine UA NEGATIVE (NEGATIVE); Color Urine UA ORANGE; Glucose Urine UA TRACE g/dL (Negative); Ketones Urine UA NEGATIVE (NEGATIVE); Leukocyte Esterase Urine UA TRACE (NEGATIVE); Nitrite Urine UA POSITIVE (Negative); Occult Blood Urine UA 1+ (Negative); Protein Urine UA 1+ (Negative); Specific Gravity Urine UA 1.025 (1.000-1.035)
[2019-06-28 10:18] LABS: pH Urine UA 5.5 (4.5-8.0)
[2019-06-28 10:19] LABS: Bacteria Urine Moderate (10-30); Culture Indicated Urine Specimen Cultured; Mucus Urine 2+ (Negative); RBC Urine 0-1/HPF (0-5/HPF); Squamous Epithelial Cell Urine 1-5 /HPF (0-5/HPF); WBC Urine 1-5/HPF (0-5/HPF)
== END ==
PROVIDERS: PCP Family Medicine; Referring Provider Family Medicine; Visit Provider Family Medicine
DX: N39.0 Urinary tract infection, site not specified (principal)
CPT/HCPCS: 81001; 87086

== ENCOUNTER → 2019-07-18 09:56 | Outpatient (CLI) | payer OTHER, SELFPAY ==
[2019-07-18 10:44] LABS: BUN Creatinine Ratio 18.6 (6-22); Blood Urea Nitrogen 11 mg/dL (7-17); Calcium 9.2 mg/dL (8.4-10.2); Carbon Dioxide 26 mmol/L (22-32); Chloride 103 mmol/L (98-107); Estimated Glomerular Filt Rate > 60.0 mL/min (>60); Glucose 95 mg/dL (70-100); HEMOLYSIS < 15 (0-50); Potassium 3.8 mmol/L (3.4-5.1); Sodium 136 mmol/L (137-145)
[2019-07-18 11:19] LABS: Ferritin 23 ng/mL (6-137)
[2019-07-18 11:47] LABS: Vitamin D 25 Hydroxy (D3) 29.5 ng/mL (30.0-100.0)
[2019-07-19 17:17] LABS: Anti Thyroglobulin Antibody <1.0 IU/mL (0.0-0.9); Thyroid Peroxidase Antibodies 33 IU/mL (0-34)
[2019-07-21 07:11] LABS: Triiodothyronine T3 Reverse 22.9 ng/dL (9.2-24.1)
== END ==
PROVIDERS: PCP Family Medicine; Referring Provider Family Medicine; Visit Provider Family Medicine
DX: E03.9 Hypothyroidism, unspecified (principal); M81.0 Age-related osteoporosis without current pathological fracture; N39.0 Urinary tract infection, site not specified; M85.80 Other specified disorders of bone density and structure, unspecified site
CPT/HCPCS: 36415; 80048; 82306; 82728; 84482; 86376; 86800

== ENCOUNTER → 2019-07-25 07:47 | Outpatient (CLI) | payer OTHER, SELFPAY ==
--- NOTE | 2019-07-25 07:48 | DI.US.S_ITS ---
PROCEDURE: US PELVIC COMPLETE INDICATIONS: DUB TECHNIQUE: Real-time scanning was performed of the pelvic organs, with image documentation. Additional endovaginal scanning was necessary due to incomplete visualization of the adnexal and endometrial structures by transabdominal scanning. COMPARISON: [facility], US, US PELVIC COMPLETE, 12/07/2018, 15:19. FINDINGS: Transabdominal scanning: Limited scanning through the kidneys shows no hydronephrosis. No pathologic free abdominal or pelvic fluid. Endovaginal scanning: Uterus: Uterus is anteverted and anteflexed, and normal in size at 6.6 x 3.3 x 4.5 cm. The endometrium measures 3 mm in combined thickness. Ovaries: The right ovary measures 3.3 x 2.1 x 1.6 cm for a volume of 5.8 cc. The left ovary measures 3.6 x 2.6 x 3.7 cm for a volume of 18 cc. It contains a dominant follicle measuring 2.4 cm. There is appropriate vascular flow in each ovary without suspicious hyperemia. No paraovarian fluid or free pelvic fluid. IMPRESSION: 1. Decreased endometrial thickness. Bleeding may be related to endometrial atrophy. 2. Normal morphology of both ovaries. Dictated by: Darline Spaulding M.D. on 07/25/2019 at 9:57 Approved by: Darline Spaulding M.D. on 07/25/2019 at 10:04
== END ==
PROVIDERS: PCP Family Medicine; Referring Provider Family Medicine; Visit Provider Family Medicine
DX: N93.8 Other specified abnormal uterine and vaginal bleeding (principal)
CPT/HCPCS: 76830; 76856

== ENCOUNTER → 2019-10-31 10:38 | Outpatient (CLI) | payer OTHER, SELFPAY ==
[2019-11-01 15:08] LABS: COVID19 Sendout Not Detected (Not Detected)
== END ==
PROVIDERS: PCP Family Medicine; Visit Provider Physician Assistant
DX: R05 Cough (principal)
CPT/HCPCS: 87635

== ENCOUNTER 2019-11-23 12:02 | Emergency (ER) | payer OTHER, SELFPAY ==
[2019-11-23 12:21] VITALS: BP 170/83; PULSE 104; RESP 18; TEMP 37; O2SAT 100; BMI 23.8
--- NOTE | 2019-11-23 12:40 | DI.RAD.S_ITS ---
PROCEDURE: XR LUMBAR SPINE 2-3V INDICATIONS: left lower back pain TECHNIQUE: 3 views of the lumbar spine were acquired. COMPARISON: None. FINDINGS: Bones: No fracture. Multilevel degenerative endplate sclerosis and spurring. Diffuse facet arthropathy. No definite disc space narrowing. Mild dextrocurvature. Soft tissues: Overlying bowel gas pattern is normal. No suspicious soft tissue calcifications. IMPRESSION: Mild degenerative changes and multilevel facet arthropathy Mild dextrocurvature Dictated by: John Aburto M.D. on 11/23/2019 at 13:19 Approved by: John Aburto M.D. on 11/23/2019 at 13:21
[2019-11-23] MEDS: IBUPROFEN 400 MG TABLET PO (13:19)
[2019-11-23] MEDS: ACETAMINOPHEN 325 MG TABLET 650 MG PO (13:20)
[2019-11-23 13:31] VITALS: BP 121/81; PULSE 74; RESP 16; O2SAT 100
--- NOTE | 2019-11-23 14:10 | ED_ITS ---
HPI - Back Pain/Injury <SHANTELL Galvan - Last Filed: 11/23/19 14:24> General Chief Complaint: Back Pain/Injury Stated Complaint: back pain caused her to vomit Time Seen by Provider: 11/23/19 12:17 Source: patient Limitations: no limitations History of Present Illness HPI Narrative: This is a 24 year female, smoker, who has history of UTI, anxiety and depression presents to ED left low back pain which started yesterday morning when she woke up. She had another episode of severe back pain when she bent over to feed her cat this morning. Reports that pain was so severe that she had an episode of emesis. Patient reports pain worsens with movement especially bending over. Patient reports she had bike ride on Thursday but has not been lifting or doing extraneous activities yesterday. Patient had UTIs in the past but it does feel different as this time pain is pretty constant and dull aches. Patient does however reports some urinary frequency. Patient denies fever, chills, nausea or other additional vomiting, rash, weakness/numbness to lower extremities or incontinence for urine or or stools. Patient uses implant for control measures. Related Data Previous Rx's Medication Instructions Recorded aripiprazole 5 mg tablet 5 mg PO DAILY #90 tab 03/24/19 buspirone 10 mg tablet 10 mg PO BID #180 tab 03/24/19 cholecalciferol (vitamin D3) 1,250 50,000 unit PO QWEEK #8 cap 08/03/19 mcg (50,000 unit) capsule escitalopram oxalate 10 mg tablet 20 mg PO QDAY #180 tab 08/03/19 norethindrone acetate 1 mg-ethinyl 1 tab PO DAILY #21 tab 08/10/19 estradiol 20 mcg tablet sumatriptan succinate 25 mg tablet 25 mg PO ONCE #10 tab 08/26/19 metronidazole 0.75 % topical cream 1 applictn TOP DAILY #45 gram 10/06/19 methocarbamol 500 mg PO TID PRN #14 tab 11/23/19 Allergies Allergy/AdvReac Type Severity Reaction Status Date / Time No Known Drug Allergies Allergy Verified 10/06/19 08:37 Review of Systems <SHANTELL Galvan - Last Filed: 11/23/19 14:24> Review of Systems Narrative: General: Denies fever, chills, fatigue, malaise, sweats. HEENT: Denies sinus pain, ear pain, sore throat, difficulty swallowing, dizziness. Respiratory: Denies dyspnea, cough, wheezing, hemoptysis, sputum. Cardiovascular: Denies chest pain, palpitations, orthopnea, edema. Gastrointestinal: Denies nausea, (+) vomiting, abdominal pain, diarrhea, constipation, melena. : See HPI Musculoskeletal: See HPI Skin: Denies rash, skin lesions, or other. Neurologic: Denies weakness, headache, numbness, change in speech, confusion, seizures, incoordination. Psychiatric: No concerning psychosocial issues. 12-point review of systems is negative except for those stated above. Patient History <SHANTELL Galvan - Last Filed: 11/23/19 14:24> Medical History Anxiety (11/16/15) Behcet triple symptom complex (Acute) Depression (Ruled-out) Gastroesophageal reflux disease (Resolved 12/12/16) History of malignant melanoma (10/26/15) Panic attack (Acute) Recurrent urinary tract infection (12/12/16) Rosacea (Acute) Rotator cuff injury (Inactive) Tobacco use disorder (10/26/15) Tonsillith (Acute) Surgical History H/O laparoscopy (Resolved ~10/29/18) No history of previous surgery (Acute) S/P wisdom tooth extraction (Acute) Family History Grandfather Lung cancer Other Family history non-contributory Social History (Updated 11/23/19 @ 14:19 by SHANTELL Galvan) household members: significant other Smoking Status: Current every day smoker alcohol intake: current substance use type: marijuana Smoking Status: Former smoker alcohol intake frequency: 0-2 drinks per day Substance Use Type: marijuana Exam <SHANTELL Galvan - Last Filed: 11/23/19 14:24> Narrative Exam Narrative: GEN: Alert, oriented x 3, well appearing and nourished, and in no acute distress. Head: Normal cephalic, atraumatic. No scalp or temporal tenderness, palpable mass or rash. EYES: Pupils are equal, round, and reactive to light and accommodation. Extraocular muscles are intact bilaterally. There is no subconjunctival hemorrhage, exudate and sclera non-icteric. ENT: Hearing grossly intact. Nose without bleeding, purulent discharge or deviation. Facial sinuses nontender to palpate. Mucous membrane moist, no mucosal lesion. Throat without erythema, tonsillar hypertrophy or exudate. Uvula in midline, airway patent. Neck: Trachea in midline. No JVD, non-tender without lymphadenopathy. No masses or thyroid megaly. Supple, non-tender and no meningeal signs. CARDIAC: Normal regular rate and rhythm without murmurs, gallops, or rubs. No chest wall tenderness. No peripheral edema, cyanosis or pallor. Capillary refill is less than 2 seconds. RESPIRATORY: Lungs are clear to auscultate bilaterally. No cough, wheezes, rales, or rhonchi. No stridor, respiratory distress, increase work of breathing, or accessary muscle used. ABD: Abdomen soft, nontender and non-distended. No guarding or rebound tenderness to palpate. Bowel sounds are normal in all 4 quadrants. There is no palpable masses or organomegaly. EXT: Full painless ROM of all extremities with no loss of sensation, strength, effusion or edema. SKIN: Warm, dry, normal color for patient. No erythema, lesions or rash over visible areas. BACK: Nontender without deformity or crepitance. No flank tenderness. NEUROLOGICAL: Alert and oriented to place, time and person. Sensation and motor function intact bilaterally. No facial droops, dysphasia. PSYCHIATRIC: Good judgement and reason, without hallucinations, abnormal affect or abnormal behaviors during the examination. Patient is not suicidal. Initial Vital Signs Initial Vital Signs: Vital Signs Temperature 98.6 F 11/23/19 12:21 Pulse Rate 104 H 11/23/19 12:21 Respiratory Rate 18 11/23/19 12:21 Blood Pressure 170/83 H 11/23/19 12:21 Pulse Oximetry 100 11/23/19 12:21 Back/Spine/Pelvis Thoracic/Lumbar Spine: straight leg raise negative bilaterally, No mass, No paraspinal tenderness, No thoracic spinal tenderness, No lumbar spinal tenderness and No tilt present <Josh Oliveros MD - Last Filed: 11/23/19 17:42> Initial Vital Signs Initial Vital Signs: Vital Signs Temperature 98.6 F 11/23/19 12:21 Pulse Rate 104 H 11/23/19 12:21 Respiratory Rate 18 11/23/19 12:21 Blood Pressure 170/83 H 11/23/19 12:21 Pulse Oximetry 100 11/23/19 12:21 Scores <SHANTELL Galvan - Last Filed: 11/23/19 14:24> GCS Vipin coma scale eye opening: Spontaneous Vipin coma scale verbal response: Orientated Vipin coma scale motor response: Obey commands Vipin coma scale total score: 15 Course <SHANTELL Galvan - Last Filed: 11/23/19 14:24> Orders Ordered: ED Orders 11/23/19 12:40 XR lumbar spine 2-3V Stat Discontinued Medications Acetaminophen (Tylenol) 650 mg PO NOW ONE Stop: 11/23/19 12:41 Last Admin: 11/23/19 13:20 Dose: 650 mg Documented by: SHIRA Ibuprofen (Advil) 400 mg PO NOW ONE Stop: 11/23/19 12:41 Last Admin: 11/23/19 13:19 Dose: 400 mg Documented by: SHIRA Reevaluation(s) Reevaluation #1: reports pain mildly improved after she has adjusted and moved around in bed Time: 14:05 Vital Signs Vital signs: Vital Signs - 8 hr 11/23/19 12:21 11/23/19 13:31 Temperature 98.6 F Pulse Rate 104 H 74 Respiratory Rate 18 16 Blood Pressure 170/83 H 121/81 Pulse Oximetry 100 100 <Josh Oliveros MD - Last Filed: 11/23/19 17:42> Orders Ordered: ED Orders 11/23/19 12:40 XR lumbar spine 2-3V Stat Discontinued Medications Acetaminophen (Tylenol) 650 mg PO NOW ONE Stop: 11/23/19 12:41 Last Admin: 11/23/19 13:20 Dose: 650 mg Documented by: SHIRA Ibuprofen (Advil) 400 mg PO NOW ONE Stop: 11/23/19 12:41 Last Admin: 11/23/19 13:19 Dose: 400 mg Documented by: SHIRA Vital Signs Vital signs: Vital Signs - 8 hr 11/23/19 12:21 11/23/19 13:31 Temperature 98.6 F Pulse Rate 104 H 74 Respiratory Rate 18 16 Blood Pressure 170/83 H 121/81 Pulse Oximetry 100 100 [facility] - Back Pain/Injury <SHANTELL Galvan - Last Filed: 11/23/19 14:24> Differential Diagnosis Differential diagnosis: Likely strain of lumbar region, renal colic and pyelonephritis Medical Records Attestation: I reviewed the patient's medical records. Lab Data Attestation: I reviewed the patient's lab results. Labs: Point of Care Testing Test Results Negative Urine Dip Bedside Urine Glucose Negative Bedside Urine Bilirubin - Negative Bedside Urine Ketone - Negative Urine Specific [place] 1.010 Bedside Urine Occult Blood - Negative Bedside Urine pH 7.5 Bedside Urine Protein - Negative Bedside Urine Urobilinogen - Negative Bedside Urine Nitrite - Negative Bedside Urine Leukocytes - Negative Esterase Imaging Data XR-Lumbar: Radiologist's Impression: [address] [id number] XRay Report Signed Patient: Addie Gandhi LMR#: [id number] : 1995Acct:[id number] Age/Sex: 24 / FDate of Service: 11/23/19 Loc: ED Accession Number: [id number] Procedure: XR lumbar spine 2-3V Ordering Provider: Dequan Aiken PROCEDURE: XR LUMBAR SPINE 2-3V INDICATIONS: left lower back pain TECHNIQUE: 3 views of the lumbar spine were acquired. COMPARISON: None. FINDINGS: Bones: No fracture. Multilevel degenerative endplate sclerosis and spurring. Diffuse facet arthropathy. No definite disc space narrowing. Mild dextrocurvature. Soft tissues: Overlying bowel gas pattern is normal. No suspicious soft tissue calcifications. IMPRESSION: Mild degenerative changes and multilevel facet arthropathy Mild dextrocurvature Dictated by: John Aburto M.D. on 11/23/2019 at 13:19 Approved by: John Aburto M.D. on 11/23/2019 at 13:21 [facility] Narrative Medical decision making narrative: Urine test is negative for infection with no leuko esterase, nitrites or blood. Urine test was negative. Physical exam is unremarkable. Patient was treated with Tylenol and Motrin while in ED. X-ray test shows mild degenerative changes and multilevel facet arthropathy and mild dextrocurvature. Considered renal stone, UTI, pyelonephritis, musculoskeletal back pain and will treat as musculoskeletal pain per physical exam and negative urine test and x- ray test results. Patient advised to use [id number] Tylenol and or Motrin and try methocarbamol for muscle spasm and discomfort as needed. Return precautions were discussed with patient and patient verbalized understanding and agreement with the treatment plan. <Josh Oliveros MD - Last Filed: 11/23/19 17:42> Lab Data Labs: Point of Care Testing Test Results Negative Urine Dip Bedside Urine Glucose Negative Bedside Urine Bilirubin - Negative Bedside Urine Ketone - Negative Urine Specific [place] 1.010 Bedside Urine Occult Blood - Negative Bedside Urine pH 7.5 Bedside Urine Protein - Negative Bedside Urine Urobilinogen - Negative Bedside Urine Nitrite - Negative Bedside Urine Leukocytes - Negative Esterase Discharge Plan Departure Patient Disposition: Home Clinical Impression: Low back pain Qualifiers: Chronicity: unspecified Back pain laterality: left Sciatica presence: without sciatica Qualified Code(s): M54.5 - Low back pain Discharge Date/Time: 11/23/19 14:21 Instructions: DI for Low Back Pain Activity Restrictions/Additional Instructions: You have been diagnosed with [left-sided low back pain. Urine test is clear for infection. test was negative. Lumbar x-ray test shows mild degenerative changes with mild dextrocurvature without Acute findings]. What to do: *Take your medications as directed. You can continue with [id number] Tylenol and or Motrin as needed for pain. Tylenol 650-1000 mg up to 3 to 4 times a day. Ibuprofen 400 mg up to 3 to 4 times a day as needed for pain with food. Methocarbamol for muscle spasm and pain has been transmitted to [facility]. *Follow up with your primary care provider in 2-3 days, call for an appointment. Let them know you were seen in the ED and that we asked you to be seen in follow up. *Return to ED if you have any new, worsening, or concerning symptoms, such as [fever, rash, chest pain, breathing difficulty, unable to tolerate fluids, incontinence, numbness to groin and extremities, weakness to extremities or any acute concerns]. Prescriptions: New methocarbamol 500 mg tablet 500 mg PO TID PRN (Reason: muscle pain) Qty: 14 RF: 0 No Action norethindrone ac-eth estradiol [Loestrin 04/25 (21)] 1-20 mg-mcg tablet 1 tab PO DAILY Qty: 21 RF: 2 aripiprazole [Abilify] 5 mg tablet 5 mg PO DAILY Qty: 90 RF: 3 buspirone 10 mg tablet 10 mg PO BID Qty: 180 RF: 3 escitalopram oxalate [Lexapro] 10 mg tablet 20 mg PO QDAY Qty: 180 RF: 3 cholecalciferol (vitamin D3) 1,250 mcg (50,000 unit) capsule 50,000 unit PO QWEEK Qty: 8 RF: 0 sumatriptan succinate [Imitrex] 25 mg tablet 25 mg PO ONCE Qty: 10 RF: 0 metronidazole [MetroCream] 0.75 % cream 1 applictn TOP DAILY Qty: 45 RF: 0 Referrals: Candice Leon DO [Primary Care Provider] - <Josh Oliveros MD - Last Filed: 11/23/19 17:42> Cosign ED Attending Cosignature Attestation: I was immediately available in the department for consultation. This documentation has been reviewed and I agree with assessment and plan. Supervised by Josh Oliveros MD
== END 2019-11-23 14:21 | disposition home or self-care (01) ==
PROVIDERS: Emergency Provider Nurse Practitioner Family; PCP Family Medicine
DX: M54.5 Low back pain (principal); F41.9 Anxiety disorder, unspecified; F32.9 Major depressive disorder, single episode, unspecified
CPT/HCPCS: 72100; 81003; 81025; 99283

== ENCOUNTER 2020-04-26 14:13 | Emergency (ER) | payer OTHER, MEDICAID, SELFPAY ==
[2020-04-26 14:20] VITALS: BP 148/77; PULSE 98; RESP 14; TEMP 36.8; O2SAT 99
--- NOTE | 2020-04-26 14:25 | ED.GENADULT ---
HPI - General Adult General Chief complaint: Abdominal Pain Stated complaint: Severe Pain, Suspects Ovarian Cysts Time Seen by Provider: 04/26/20 14:14 Source: patient Mode of arrival: Ambulatory Limitations: no limitations History of Present Illness HPI narrative: Patient is an otherwise healthy 25-year-old female who is here for evaluation of suprapubic/right adnexa pain. She does have a history of ovarian cyst. She states that last evening after having intercourse she developed lower abdominal pain. She then had a series of vomiting episodes which did seem to improve her discomfort. And then since that time her symptoms have worsened until today when she contacted her primary doctor who told her to come to the emergency department. Her last menstrual cycle was approximately 1 week ago. She is having some constipation but this is not new for her. No fevers. She is not nauseous currently. She did take ibuprofen several hours prior to this visit. She states she is not concerned about sexually transmitted diseases. She is not having any urinary symptoms. Related Data Previous Rx's Medication Instructions Recorded metronidazole 0.75 % topical cream 1 applictn TOP DAILY #45 gram 10/06/19 aripiprazole 5 mg tablet 5 mg PO DAILY #90 tab 12/30/19 escitalopram oxalate 20 mg tablet 20 mg PO DAILY #90 tab 12/30/19 metformin 500 mg tablet 250 mg PO BID #90 tab 12/30/19 sumatriptan succinate 25 mg tablet 25 mg PO ONCE #10 tab 12/30/19 Allergies Allergy/AdvReac Type Severity Reaction Status Date / Time No Known Drug Allergies Allergy Verified 04/26/20 14:24 Review of Systems Constitutional Constitutional: Denies fever(s) Cardiovascular Cardiovascular: Denies chest pain and Denies dyspnea Respiratory Respiratory: Denies dyspnea Gastrointestinal Gastrointestinal: Reports abdominal pain, Denies change in bowel habits, Reports constipation and Reports vomiting (Last evening) Genitourinary Genitourinary: Denies dysuria Genitourinary: Denies dysuria Musculoskeletal Musculoskeletal: Denies arthralgias and Denies myalgias Integumentary/Breasts Skin/Breast: Denies rash Neurologic Neurologic: Denies behavioral changes Psychiatric Psychiatric: Denies behavioral changes Hematologic/Lymphatic Hematologic/Lymphatic: Denies easy bleeding and Denies easy bruising Allergic/Immunologic Allergic/Immunologic: Denies urticaria Patient History Medical History (Updated 04/26/20 @ 16:27 by Tanvir Rodriguez DO) Anxiety (11/16/15) Behcet triple symptom complex Depression Gastroesophageal reflux disease (12/12/16) Hirsutism History of malignant melanoma (10/26/15) Panic attack PCOS (polycystic ovarian syndrome) Recurrent urinary tract infection (12/12/16) Rosacea Rotator cuff injury Tobacco use disorder (10/26/15) Tonsillith Surgical History H/O laparoscopy (~10/29/18) No history of previous surgery S/P wisdom tooth extraction Family History (Updated 02/12/20 @ 17:54 by Candice Leon DO) Grandfather Lung cancer Mother Alcoholism Other Family history non-contributory Social History household members: significant other Smoking Status: Current every day smoker alcohol intake: current substance use type: marijuana Smoking Status: Current every day smoker alcohol intake frequency: 0-2 drinks per day Substance Use Type: marijuana Exam Initial Vital Signs Initial Vital Signs: Vital Signs Temperature 98.2 F 04/26/20 14:20 Pulse Rate 98 H 04/26/20 14:20 Respiratory Rate 14 04/26/20 14:20 Blood Pressure 148/77 H 04/26/20 14:20 Pulse Oximetry 99 04/26/20 14:20 Const General: cooperative and comfortable Limitations: mental status not altered HENMT Head: normal to inspection and normocephalic Resp Effort & Inspection: normal respiratory effort Auscultation: clear to auscultation bilaterally Cardio Rate: regular rate Rhythm: regular rhythm GI Inspection: non-distended Palpation: soft, No firm and tender (Right adnexa) Speculum Exam - Vagina: normal appearance of the vagina Speculum Exam - Cervix: normal appearance of the cervix, closed and nontender Bimanual Exam- Vagina & Uterus: No tender and non-tender Bimanual Exam- Adnexa, other: tender on the right and no masses noted Back/Spine/Pelvis Back: No CVA tenderness Skin Lesions: no lesions Rashes: no rashes Neuro General: patient alert and patient awake Cognition: normal cognition Speech: speech normal Extrem General: capillary refill normal Psych Appearance: grossly normal and well kempt Course Orders Ordered: ED Orders 04/26/20 14:13 Chlamydia Gonorrhea PCR -URINE Stat ANUJ Prep Stat Wet Prep Tric BV Bree Stat 04/26/20 14:25 US pelvic complete Stat 04/26/20 14:26 Urine Culture Stat Urine Microscopic Stat 04/26/20 15:15 Chlamydia/Gonorrhea Pharyngeal Stat Vital Signs Vital signs: Vital Signs - 8 hr 04/26/20 14:20 04/26/20 16:34 Temperature 98.2 F Pulse Rate 98 H 74 Respiratory Rate 14 16 Blood Pressure 148/77 H 126/77 Pulse Oximetry 99 98 Medical Decision Making Medical Records Medical records reviewed: Yes I reviewed the patient's medical records. Lab Data Labs: Lab Results 04/26/20 04/26/20 Range/Units 14:13 14:26 Urine RBC 0-1/hpf (0-5/HPF) Urine WBC 1-5/hpf (0-5/HPF) Ur Squamous Epith Cells 5-10 /hpf H (0-5/HPF) Ur Transition Epith Cell 1-5/hpf (0-5/HPF) Urine Bacteria Many (>30) H (None) Urine Mucus 2+ H (Negative) Ur Culture Indicated? Specimen cultured Ur Chlamydia DNA (PCR) Not detected N gonorrhoeae DNA (PCR) Not detected Point of Care Testing Test Results Negative Urine Dip Bedside Urine Glucose Negative Bedside Urine Bilirubin - Negative Bedside Urine Ketone - Negative Urine Specific [place] 1.015 Bedside Urine Occult Blood - Negative Bedside Urine pH 8.0 Bedside Urine Protein +/- 15 Bedside Urine Urobilinogen - Negative Bedside Urine Nitrite - Negative Bedside Urine Leukocytes - Negative Esterase Point of care testing: Point of Care Testing Test Results Negative Urine Dip Bedside Urine Glucose Negative Bedside Urine Bilirubin - Negative Bedside Urine Ketone - Negative Urine Specific [place] 1.015 Bedside Urine Occult Blood - Negative Bedside Urine pH 8.0 Bedside Urine Protein +/- 15 Bedside Urine Urobilinogen - Negative Bedside Urine Nitrite - Negative Bedside Urine Leukocytes - Negative Esterase Imaging Data US - ENTRY LEVEL RECEPTIONIST: Radiologist's Impression: [address] [id number] ReportSigned Patient: Addie Gandhi LMR#: [id number]: 1995Acct:[id number]/Sex: 25 / FDate of Service: 04/26/20Loc: EDAccession Number: [id number] Procedure: US pelvic complete Ordering Provider: Tanvir Rodriguez D.O. PROCEDURE: US PELVIC COMPLETE INDICATIONS: RIGHT ADNEXAL PAIN TECHNIQUE: Real-time scanning was performed of the pelvic organs, with image documentation. Additional endovaginal scanning was necessary due to incomplete visualization of the adnexal and endometrial structures by transabdominal scanning. COMPARISON: [facility], , US PELVIC COMPLETE, 07/25/2019, 8:17. FINDINGS: Uterus: Uterus is normal in size at 7.1 x 3.6 x 4.6 cm. The endometrium measures 8 mm in combined thickness. Ovaries: The right ovary measures 2.3 x 1.8 x 1.6 cm and demonstrates an unremarkable sonographic appearance. The left ovary measures 5.2 x 3.4 x 3.8 cm and demonstrates several cystic foci, with the largest measuring 3 x 2.7 x 2.6 cm. An additional collapsing cyst can also be seen that measures up to 1.9 cm. Other: No pathologic free abdominal or pelvic fluid. IMPRESSION: Left ovarian cysts are seen, with the largest measuring up to 3 cm. In a patient of this age, these are almost certainly benign within physiologic limits. At clinical discretion, a followup pelvic ultrasound could be considered in 6 weeks to assure resolution/ improvement. Endometrial stripe now measures within normal limits at 8 mm. Dictated by: Anibal Shetty M.D. on 04/26/2020 at 14:02 Approved by: Anibal Shetty M.D. on 04/26/2020 at 14:[address] [facility] Narrative Medical decision making narrative: Patient's workup here in the emergency department was not consistent with BV, yeast infection, her urine GC and chlamydia was negative however this was not a clean catch. A GC and chlamydia vaginal swab was pending at the time of discharge patient was informed of this. Her pelvic ultrasound shows left-sided ovarian cysts however her right ovary/adnexa are unremarkable. Patient's symptoms did start suddenly after having intercourse last evening. She does state she has a history of PCOS. Potentially she ruptured a cyst yesterday causing her increase in pain and then the pain cause the vomiting. Feel patient could be safely discharged home. I had a discussion with her regarding all of this and she was given return precautions. She expressed understanding and agreement. Discharge Plan Departure Patient Disposition: Home Clinical Impression: Pelvic pain Instructions: DI for Ovarian Cyst Activity Restrictions/Additional Instructions: There were some lab still pending at the time of discharge. We will contact you if we need to prescribe any antibiotics for these. Contact your primary provider for follow-up. Return to the emergency department for any new or worsening symptoms Prescriptions: No Action aripiprazole [Abilify] 5 mg tablet 5 mg PO DAILY Qty: 90 RF: 3 sumatriptan succinate [Imitrex] 25 mg tablet 25 mg PO ONCE Qty: 10 RF: 0 escitalopram oxalate 20 mg tablet 20 mg PO DAILY Qty: 90 RF: 3 metformin 500 mg tablet 250 mg PO BID Qty: 90 RF: 0 metronidazole [MetroCream] 0.75 % cream 1 applictn TOP DAILY Qty: 45 RF: 0 Referrals: Candice Leon DO [Primary Care Provider] -
[2020-04-26 14:39] LABS: Bacteria Urine Many (>30); Mucus Urine 2+ (Negative); RBC Urine 0-1/HPF (0-5/HPF); Squamous Epithelial Cell Urine 5-10 /HPF (0-5/HPF); Transitional Epi Cells Urine 1-5/HPF (0-5/HPF); WBC Urine 1-5/HPF (0-5/HPF)
[2020-04-26 14:40] LABS: Culture Indicated Urine Specimen Cultured
[2020-04-26 16:34] VITALS: BP 126/77; PULSE 74; RESP 16; O2SAT 98
[2020-04-26 16:35] LABS: Urine N gonorrhoeae NOT DETECTED
[2020-04-26 16:43] LABS: Urine Chlamydia NOT DETECTED
[2020-05-15 12:51] LABS: C.trachomatis RNA NEGATIVE; N.gonorrhoeae RNA NEGATIVE
== END 2020-04-26 16:34 | disposition home or self-care (01) ==
PROVIDERS: Emergency Provider Emergency Medicine; PCP Family Medicine
DX: R10.2 Pelvic and perineal pain (principal); K59.00 Constipation, unspecified; R11.10 Vomiting, unspecified; E28.2 Polycystic ovarian syndrome; Z11.3 Encounter for screening for infections with a predominantly sexual mode of transmission
CPT/HCPCS: 76830; 76856; 81003; 81015; 81025; 87086; 87210; 87220; 87491; 87591; 99284

== ENCOUNTER → 2020-06-15 09:06 | Outpatient (CLI) | payer OTHER, MEDICAID, SELFPAY ==
[2020-06-15 09:33] LABS: COVID19 -Nasal RAPID Negative (Negative)
== END ==
PROVIDERS: PCP Family Medicine; Visit Provider Family Medicine
DX: R09.81 Nasal congestion (principal); R52 Pain, unspecified; R53.83 Other fatigue; R68.83 Chills (without fever); Z20.822 Contact with and (suspected) exposure to COVID-19
CPT/HCPCS: 87635

== ENCOUNTER → 2020-08-26 09:14 | Outpatient (CLI) | payer OTHER, MEDICAID, SELFPAY | PROVIDERS: PCP Family Medicine; Visit Provider Physician Assistant | DX: N89.8 Other specified noninflammatory disorders of vagina (principal) | CPT/HCPCS: 87210 ==

== ENCOUNTER 2020-09-01 11:29 | Emergency (ER) | payer OTHER, MEDICAID, SELFPAY ==
[2020-09-01 11:35] VITALS: BP 123/78; PULSE 89; RESP 18; TEMP 37.1; O2SAT 99; BMI 22.4
--- NOTE | 2020-09-01 12:22 | DI.US.S_ITS ---
PROCEDURE: US PELVIC COMPLETE INDICATIONS: PAIN TECHNIQUE: Real-time scanning was performed of the pelvic organs, with image documentation. Additional endovaginal scanning was necessary due to incomplete visualization of the adnexal and endometrial structures by transabdominal scanning. COMPARISON: [facility], , PELVIC COMPLETE, 07/25/2019, 8:17. [facility], , US PELVIC COMPLETE, 04/26/2020, 14:37. FINDINGS: Uterus: Uterus is normal in size at 6.5 x 3.5 x 3.8 cm. The endometrium measures 3 mm in combined thickness. Ovaries: The right ovary measures 4.5 x 3.5 x 4.2 cm and demonstrates a simple cyst that measures up to 3.6 cm. The left ovary measures 3.1 x 2.5 x 2.7 cm. The ovaries otherwise have a normal sonographic appearance. No adnexal masses are seen. Other: No pathologic free abdominal or pelvic fluid. A small amount of free fluid can be seen adjacent to the right ovary. IMPRESSION: There is a 3.6 cm simple cyst involving the right ovary, which is almost certainly benign in a patient of this age. At clinical discretion, a followup pelvic ultrasound could be considered in 6 weeks to assure resolution/ improvement. Dictated by: Anibal Shetty M.D. on 09/01/2020 at 12:35 Approved by: Anibal Shetty M.D. on 09/01/2020 at 12:38
[2020-09-01] MEDS: KETOROLAC 30 MG/ML VIAL 15 MG IV (12:52)
[2020-09-01 13:33] LABS: Add Manual Diff / Slide Review NO; Basophils Absolute Auto 0 /uL (0-100); Eosinophils Absolute Auto 100 /uL (0-450); Eosinophils Percent Auto 2.2 % (2-4); Hemoglobin 12.4 g/dL (12.0-16.0); Lymphocytes Absolute Auto 1800 /uL (1100-4500); Lymphocytes Percent Auto 38.8 % (25-40); Mean Corpuscular HGB Conc 33.4 % (30-36); Mean Corpuscular Hemoglobin 30.4 PG (26-34); Monocytes Absolute Auto 500 /uL (0-900); Monocytes Percent Auto 11.6 % (3-14); Neutrophils Absolute Auto 2100 /uL (1500-7000); Neutrophils Percent Auto 46.4 % (50-75); Platelet Count 258 X10^3/uL (150-400); Red Blood Cell Count 4.07 X10^6/uL (4.0-5.2); Red Cell Distribution Width 12.9 % (11.6-14.8); White Blood Cell Count 4.6 X10^3/uL (4.5-11.0)
[2020-09-01 13:59] LABS: Alanine Aminotransferase 14 IU/L (<35); Albumin Globulin Ratio 1.4 (1.0-2.8); Alkaline Phosphatase 65 U/L (38-126); Aspartate Aminotransferase 27 IU/L (14-36); BUN Creatinine Ratio 13.3 (6-22); Bilirubin Total 0.2 mg/dL (0.2-1.3); Blood Urea Nitrogen 8 mg/dL (7-17); Calcium 9.2 mg/dL (8.4-10.2); Carbon Dioxide 24 mmol/L (22-32); Chloride 106 mmol/L (98-107); Estimated Glomerular Filt Rate > 60.0 mL/min (>60); Globulin 2.8 g/dL (1.7-4.1); Glucose 91 mg/dL (70-100); HEMOLYSIS < 15 (0-50); Lipase 54 U/L (23-300); Potassium 4.3 mmol/L (3.4-5.1); Sodium 137 mmol/L (137-145); Total Protein 6.8 g/dL (6.3-8.2)
--- NOTE | 2020-09-01 14:29 | ED_ITS ---
HPI - Abdominal Pain General Chief Complaint: Abdominal Pain Stated Complaint: Lower Rt Quadrant Pain Time Seen by Provider: 09/01/20 12:26 Source: patient Mode of arrival: Ambulatory Limitations: no limitations History of Present Illness HPI narrative: Patient here with boyfriend. Complains 4 days of right lower q uadrant pain. No nausea or vomiting. No urinary complaints other than urinary frequency. No dysuria. No vaginal complaints no discharge. Pain does not radiate. Patient states seems to similar to past ovarian cyst pain. Had some fever in the past couple days. No cough cold congestion. No flank pain. No hematuria. MD complaint: abdominal pain Related Data Previous Rx's Medication Instructions Recorded metronidazole 0.75 % topical cream 1 applictn TOP DAILY #45 gram 10/06/19 sumatriptan succinate 25 mg tablet 25 mg PO ONCE #10 tab 05/01/20 ibuprofen 800 mg tablet 800 mg PO TID #30 tab 05/02/20 metformin 500 mg tablet 500 mg PO BID #60 tab 05/04/20 clotrimazole 1 % topical cream 1 applic TOPICAL BID 28 Days #28 g 08/26/20 hydrocodone-acetaminophen 1 tab PO Q6H PRN #10 tab 09/01/20 ondansetron 4 mg PO Q8H PRN #10 tab 09/01/20 Allergies Allergy/AdvReac Type Severity Reaction Status Date / Time No Known Drug Allergies Allergy Verified 09/01/20 12:10 Review of Systems Review of Systems Narrative: GENERAL: Denies chills, fatigue, malaise, complaint fever, denies sweats. HEENT: Denies sinus pain, ear pain, sore throat RESPIRATORY: Denies dyspnea, cough CARDIOVASCULAR: Denies chest pain, palpitations GASTROINTESTINAL: Denies nausea, vomiting, complains abdominal pain : Denies dysuria, complains frequency, denies hematuria MUSCULOSKELETAL: denies muscle or bony pain SKIN: Denies rash, skin lesions NEUROLOGIC: Denies weakness, numbness ROS Unobtainable: All systems reviewed & are unremarkable except as noted in HPI and below Patient History Medical History Anxiety (11/16/15) Behcet triple symptom complex Congenital nasal septum deviation Depression Gastroesophageal reflux disease (12/12/16) Hirsutism History of malignant melanoma (10/26/15) Panic attack PCOS (polycystic ovarian syndrome) Recurrent urinary tract infection (12/12/16) Rosacea Rotator cuff injury Tobacco use disorder (10/26/15) Tonsillith Surgical History H/O laparoscopy (~10/29/18) No history of previous surgery S/P wisdom tooth extraction Family History Grandfather Lung cancer Mother Alcoholism Other Family history non-contributory Social History household members: significant other Smoking Status: Current every day smoker alcohol intake: current substance use type: marijuana Smoking Status: Current every day smoker tobacco type: cigarettes alcohol intake frequency: a few times a week Alcohol type: wine Substance Use Type: marijuana Exam Narrative Exam Narrative: GENERAL: in no distress, not toxic not dyspneic HEAD: Normocephalic. EYES: Pupils equal round No scleral icterus. No injection no discharge ENT: Mucous membranes moist. NECK: Trachea midline. CARDIOVASCULAR: Regular rate and rhythm without murmurs RESPIRATORY: Clear to auscultation. Breath sounds equal bilaterally. No wheezes, rales, or rhonchi. GASTROINTESTINAL: Abdomen soft, mild right lower quadrant tenderness. tender M cBurney point. No peritoneal signs. Bowel sounds present EXTREMITIES: No gross deformities. BACK: No flank tenderness. NEURO: AOx4. SKIN: Warm and dry PSYCH: Not anxious, is cooperative Initial Vital Signs Initial Vital Signs: Vital Signs Temperature 98.7 F 09/01/20 11:35 Pulse Rate 89 09/01/20 11:35 Respiratory Rate 18 09/01/20 11:35 Blood Pressure 123/78 09/01/20 11:35 Pulse Oximetry 99 09/01/20 11:35 Course Course Course Narrative: 2:[address] Shetty, radiologist. There is no torsion of the ovaries. Good blood flow to both ovaries Orders Ordered: Discontinued Medications Sodium Chloride (Normal Saline 0.9%) 1,000 mls @ 1,000 mls/hr IV BOLUS ONE Stop: 09/01/20 15:27 Last Infusion: 09/01/20 15:29 Dose: 0 mls/hr Documented by: Admin: 09/01/20 14:40 Dose: 1,000 mls/hr Documented by: SUNG Ketorolac Tromethamine (Ketorolac 30 Mg/Ml Vial) 15 mg IV NOW ONE Stop: 09/01/20 12:45 Last Admin: 09/01/20 12:52 Dose: 15 mg Documented by: SUNG Morphine Sulfate (Morphine 4 Mg/Ml Inj) 4 mg IV NOW ONE Stop: 09/01/20 14:29 Last Admin: 09/01/20 14:38 Dose: 4 mg Documented by: SUNG Ondansetron HCl (Ondansetron 4 Mg/2 Ml Inj) 4 mg IV NOW ONE Stop: 09/01/20 14:29 Last Admin: 09/01/20 14:38 Dose: 4 mg Documented by: SUNG Reevaluation(s) Reevaluation #1: Patient feels much better. Pain controlled. No nausea or vomiting. Reviewed results with patient and agrees with treatment plan to follow-up with her primary care doctor eric. Does not want pelvic exam at this time. Workup so far has been reassuring. Not toxic for discharge Time: 15:29 Vital Signs Vital signs: Vital Signs - 8 hr 09/01/20 11:35 09/01/20 15:09 Temperature 98.7 F Pulse Rate 89 80 Respiratory Rate 18 16 Blood Pressure 123/78 118/79 Pulse Oximetry 99 100 MDM - Abdominal Pain Differential Diagnosis Differential diagnosis: Likely acute appendicitis, calculus of kidney, endometriosis and other (Ovarian torsion) Lab Data Attestation: I reviewed the patient's lab results. Result diagrams: 09/01/20 13:23 09/01/20 13:23 Labs: Lab Results 09/01/20 09/01/20 Range/Units 13:23 13:23 WBC 4.6 (4.5-11.0) X10^3/uL RBC 4.07 (4.0-5.2) X10^6/uL Hgb 12.4 (12.0-16.0) g/dL Hct 37.0 (36-46) % MCV 91.0 (80-100) fL MCH 30.4 (26-34) PG MCHC 33.4 (30-36) % RDW 12.9 (11.6-14.8) % Plt Count 258 (150-400) X10^3/uL Neut % (Auto) 46.4 L (50-75) % Lymph % (Auto) 38.8 (25-40) % Sanders % (Auto) 11.6 (3-14) % Eos % (Auto) 2.2 (2-4) % Baso % (Auto) 1.0 (0-2) % Neut # (Auto) 2100 (2482-6989) /uL Lymph # (Auto) 1800 (9706-8907) /uL Sanders # (Auto) 500 (0-900) /uL Eos # (Auto) 100 (0-450) /uL Baso # (Auto) 0 (0-100) /uL Sodium 137 (137-145) mmol/L Potassium 4.3 (3.4-5.1) mmol/L Chloride 106 (98-107) mmol/L Carbon Dioxide 24 (22-32) mmol/L BUN 8 (7-17) mg/dL Creatinine 0.60 (0.52-1.04) mg/dL Estimated GFR > 60.0 (>60) mL/min BUN/Creatinine Ratio 13.3 (6-22) Glucose 91 (70-100) mg/dL Calcium 9.2 (8.4-10.2) mg/dL Total Bilirubin 0.2 (0.2-1.3) mg/dL AST 27 (14-36) IU/L ALT 14 (<35) IU/L Alkaline Phosphatase 65 (38-126) U/L Total Protein 6.8 (6.3-8.2) g/dL Albumin 4.0 (3.5-5.0) g/dL Globulin 2.8 (1.7-4.1) g/dL Albumin/Globulin Ratio 1.4 (1.0-2.8) Lipase 54 (23-300) U/L Point of care testing: Point of Care Testing Test Results Negative Urine Dip Bedside Urine Glucose Negative Bedside Urine Bilirubin - Negative Bedside Urine Ketone - Negative Urine Specific [place] 1.025 Bedside Urine Occult Blood - Negative Bedside Urine pH 6.5 Bedside Urine Protein - Negative Bedside Urine Urobilinogen - Negative Bedside Urine Nitrite - Negative Bedside Urine Leukocytes - Negative Esterase Imaging Data US - MOBILE DEVELOPER: Radiologist's Impression: [address] [id number] ReportAddendum Patient: Addie Gadnhi LMR#: [id number]: 1995Acct:[id number]/Sex: 25 / FDate of Service: 09/01/20Loc: EDAccession Number: [id number] Procedure: US pelvic complete Ordering Provider: Josh Oliveros MD ADDENDUMThis report includes an Addendum and supersedes previous reports for this exam. PROCEDURE: US PELVIC COMPLETE INDICATIONS: PAIN TECHNIQUE: Real-time scanning was performed of the pelvic organs, with image documentation. Additional endovaginal scanning was necessary due to incomplete visualization of the adnexal and endometrial structures by transabdominal scanning. COMPARISON: [facility], PELVIC COMPLETE, 07/25/2019, 8:17. [facility], PELVIC COMPLETE, 04/26/2020, 14:37. FINDINGS: Uterus: Uterus is normal in size at 6.5 x 3.5 x 3.8 cm. The endometrium me asures 3 mm in combined thickness. Ovaries: The right ovary measures 4.5 x 3.5 x 4.2 cm and demonstrates a simple cyst that measures up to 3.6 cm. The left ovary measures 3.1 x 2.5 x 2.7 cm. The ovaries otherwise have a normal sonographic appearance. No adnexal masses are seen. Other: No pathologic free abdominal or pelvic fluid. A small amount of free fluid can be seen adjacent to the right ovary. IMPRESSION: There is a 3.6 cm simple cyst involving the right ovary, which is almost certainly benign in a patient of this age. At clinical discretion, a followup pelvic ultrasound could be considered in 6 weeks to assure resolution/ improvement. Dictated by: Anibal Shetty M.D. on 09/01/2020 at 12:35 Approved by: Anibal Shetty M.D. on 09/01/2020 at 12:38 ADDENDUM: Normal appearing arterial waveforms are confirmed to each ovary. Note: Contents of this addendum discussed by telephone with Dr. Oliveros at 1:35 p.m. [place] time on September 01, 2020. Dictated by: Anibal Shetty M.D. on 09/01/2020 at 13:34 Approved by: Anibal Shetty M.D. on 09/01/2020 at 13:35 Addendum Dictated By:Anibal Shetty MDAddendum Signed By:Addendum Cosigned By:DD/ TD/TT: 09/01/20 PROCEDURE: US PELVIC COMPLETE INDICATIONS: PAIN TECHNIQUE: Real-time scanning was performed of the pelvic organs, with image documentation. Additional endovaginal scanning was necessary due to incomplete visualization of the adnexal and endometrial structures by transabdominal scanning. COMPARISON: [facility], PELVIC COMPLETE, 07/25/2019, 8:17. [facility], PELVIC COMPLETE, 04/26/2020, 14:37. FINDINGS: Uterus: Uterus is normal in size at 6.5 x 3.5 x 3.8 cm. The endometrium measures 3 mm in combined thickness. Ovaries: The right ovary measures 4.5 x 3.5 x 4.2 cm and demonstrates a simple cyst that measures up to 3.6 cm. The left ovary measures 3.1 x 2.5 x 2.7 cm. The ovaries otherwise have a normal sonographic appearance. No adnexal masses are seen. Other: No pathologic free abdominal or pelvic fluid. A small amount of free fluid can be seen adjacent to the right ovary. IMPRESSION: There is a 3.6 cm simple cyst involving the right ovary, which is almost certainly benign in a patient of this age. At clinical discretion, a followup pelvic ultrasound could be considered in 6 weeks to assure resolution/ improvement. Dictated by: Anibal Shetty M.D. on 09/01/2020 at 12:35 Approved by: Anibal Shetty M.D. on 09/01/2020 at 12:38 CT scan - abdomen/pelvis: Radiologist's Impression: [address] [id number] Scan ReportSigned Patient: Addie Gandhi LMR#: [id number]: 1995Acct:[id number]/Sex: 25 / FDate of Service: 09/01/20Loc: EDAccession Number: [id number] Procedure: CT abdomen pelvis w con Ordering Provider: Josh Oliveros MD PROCEDURE: CT ABDOMEN PELVIS W CON INDICATIONS: IV contrast only/Right lower quadrant pain TECHNIQUE: After the administration of intravenous contrast, 5 mm thick sections acquired from the diaphragm to the symphysis. 5 mm coronal and sagittal reformats were acquired. For radiation dose reduction, the following was used: automated exposure control, adjustment of mA and/or kV according to patient size. COMPARISON: None. FINDINGS: Image quality: Excellent. ABDOMEN: Lung bases: Lung bases are clear. Heart size is normal. Solid organs: Liver is normal in size and enhancement. Gallbladder is within normal limits. Biliary system is non dilated. Pancreas enhances normally. Spleen is normal in size and enhancement. No adrenal nodules. Kidneys demonstrate normal size and enhancement, without hydronephrosis. Peritoneum and bowel: Bowel loops demonstrate normal wall thickness and caliber. No free air. Trace free fluid in the cul-de-sac of the pelvis. Appendix is normal. Nodes and vessels: No retroperitoneal or mesenteric adenopathy by size criteria. Aorta and inferior vena cava are normal in size. Miscellaneous: No ventral hernias. PELVIS: Genitourinary: Bladder wall thickness is normal. 4.2 centimeter right adnexal region cyst. Miscellaneous: No inguinal hernias or adenopathy. Bones: No suspicious bony lesions. No vertebral body compression fractures. IMPRESSION: 1. 4.2 centimeter right adnexal region cyst likely representing ovarian cyst. If there is clinical concern for ovarian pathology including ovarian torsion, pelvic ultrasound should be considered for further evaluation. 2. Appendix is normal. 3. Trace free fluid in the cul-de-sac of the pelvis which is within physiologic limits. No free air. Dictated by: Linnea Patricia MD, PhD on 09/01/2020 at 15:09 Approved by: Linnea Patricia MD, PhD on 09/01/2020 at 15:13 [facility] Narrative Medical decision making narrative: Appropriate for discharge home. Exam as well as laboratory and imaging reassuring. Patient does have primary care to follow up with. Pain is controlled. Discharge Plan Departure Patient Disposition: Home Clinical Impression: Cyst of ovary Qualifiers: Laterality: right Qualified Code(s): N83.201 - Unspecified ovarian cyst, right side Instructions: DI for Ovarian Cyst Activity Restrictions/Additional Instructions: No driving or operating machinery today or when taking prescribed pain medication. See your family doctor on [place] for recheck. Return if worse or if any questions or concerns. Prescriptions: New hydrocodone-acetaminophen 5-325 mg tablet 1 tab PO Q6H PRN (Reason: pain) Qty: 10 RF: 0 ondansetron 4 mg tablet,disintegrating 4 mg PO Q8H PRN (Reason: nausea and vomiting) Qty: 10 RF: 0 No Action clotrimazole 1 % cream 1 applic topical BID 28 Days Qty: 28 RF: 2 sumatriptan succinate [Imitrex] 25 mg tablet 25 mg PO ONCE Qty: 10 RF: 0 ibuprofen 800 mg tablet 800 mg PO TID Qty: 30 RF: 0 metformin 500 mg tablet 500 mg PO BID Qty: 60 RF: 1 metronidazole [MetroCream] 0.75 % cream 1 applictn TOP DAILY Qty: 45 RF: 0 Referrals: Candice Leon DO [Primary Care Provider] -
[2020-09-01] MEDS: ONDANSETRON 4 MG/2 ML INJ IV (14:38)
[2020-09-01] MEDS: MORPHINE 4 MG/ML INJ IV (14:38)
[2020-09-01] MEDS: SODIUM CHLORIDE 0.9% 1,000 ML 1000 ML IV (14:40)
[2020-09-01 15:09] VITALS: BP 118/79; PULSE 80; RESP 16; O2SAT 100
== END 2020-09-01 15:41 | disposition home or self-care (01) ==
PROVIDERS: Emergency Provider Emergency Medicine; PCP Family Medicine
DX: N83.201 Unspecified ovarian cyst, right side (principal); R50.9 Fever, unspecified
CPT/HCPCS: 36415; 74177; 76830; 76856; 80053; 81003; 81025; 83690; 85025; 96361; 96374; 96375; 99284; J1885; J2270; J2405; Q9967

== ENCOUNTER 2020-09-09 23:39 | Emergency (ER) | payer OTHER, MEDICAID, SELFPAY ==
[2020-09-09 23:47] VITALS: BP 148/94; PULSE 83; RESP 16; TEMP 36.8; O2SAT 100; BMI 22.4
--- NOTE | 2020-09-10 00:16 | ED_ITS ---
HPI - Abdominal Pain General Chief Complaint: Abdominal Pain Stated Complaint: lower abdomen pain Time Seen by Provider: 09/10/20 00:03 Source: patient Mode of arrival: Ambulatory Limitations: no limitations History of Present Illness HPI narrative: 25-year-old woman presents with a week of increasing lower abdominal pain. Today she noted some pain after voiding but no burning, odor to her urine or increasing frequency. She notes that she has had frequent UTIs in the past. She knows she has a right ovarian cyst and describes this pain is different from that type of pain. Her last menstrual period was in July and she does have Nexplanon implant. She complains of no vaginal discharge in reports no new sexual partners recently. No vomiting or diarrhea, denies fevers, cough, chest pain, palpitations, headache. Related Data Previous Rx's Medication Instructions Recorded metronidazole 0.75 % topical cream 1 applictn TOP DAILY #45 gram 10/06/19 sumatriptan succinate 25 mg tablet 25 mg PO ONCE #10 tab 05/01/20 ibuprofen 800 mg tablet 800 mg PO TID #30 tab 05/02/20 metformin 500 mg tablet 500 mg PO BID #60 tab 05/04/20 clotrimazole 1 % topical cream 1 applic TOPICAL BID 28 Days #28 g 08/26/20 hydrocodone-acetaminophen 1 tab PO Q6H PRN #10 tab 09/01/20 ondansetron 4 mg PO Q8H PRN #10 tab 09/01/20 sulfamethoxazole-trimethoprim 1 tab PO BID 3 Days #6 tab 09/10/20 [Bactrim DS] Allergies Allergy/AdvReac Type Severity Reaction Status Date / Time No Known Drug Allergies Allergy Verified 09/01/20 12:10 Review of Systems Review of Systems Narrative: All systems reviewed and are unremarkable except as noted in HPI Patient History Medical History Anxiety (11/16/15) Behcet triple symptom complex Congenital nasal septum deviation Depression Gastroesophageal reflux disease (12/12/16) Hirsutism History of malignant melanoma (10/26/15) Panic attack PCOS (polycystic ovarian syndrome) Recurrent urinary tract infection (12/12/16) Rosacea Rotator cuff injury Tobacco use disorder (10/26/15) Tonsillith Surgical History H/O laparoscopy (~10/29/18) No history of previous surgery S/P wisdom tooth extraction Family History Grandfather Lung cancer Mother Alcoholism Other Family history non-contributory Social History household members: significant other Smoking Status: Current every day smoker alcohol intake: current substance use type: marijuana Smoking Status: Current every day smoker tobacco type: cigarettes alcohol intake frequency: a few times a week Alcohol type: wine Substance Use Type: marijuana Exam Narrative Exam Narrative: General: Healthy appearing, in no acute distress. Able to give a complete and coherent history. Well-nourished well-developed HEENT: Moist mucous membranes, normal sclera with reactive pupils, Respiratory: Lungs are clear to auscultation, no wheezing no rales no rhonchi. Full and symmetrical air movement Cardiac: Regular rate and rhythm no murmurs no bruits Abdomen: Soft, mild suprapubic tenderness, good bowel tones, no flank pain Pelvic exam: Normal external genitalia without any rashes or abnormalities. No vaginal discharge. No tenderness at the introitus and no cervical motion tenderness. Skin: Warm and dry, no rashes Neurologic: Grossly neurologically intact with no obvious asymmetries or abnormalities Extremities: No trauma, well perfused Psych: Cooperative, appropriate insight and affect Initial Vital Signs Initial Vital Signs: Vital Signs Temperature 98.2 F 09/09/20 23:47 Pulse Rate 83 09/09/20 23:47 Respiratory Rate 16 09/09/20 23:47 Blood Pressure 148/94 H 09/09/20 23:47 Pulse Oximetry 100 09/09/20 23:47 Course Orders Ordered: Discontinued Medications Trimethoprim/Sulfamethoxazole (Trimeth/Sulfa 160/800 (Ds) Tablet) 1 tab PO NOW ONE Stop: 09/10/20 00:29 Last Admin: 09/10/20 00:35 Dose: 1 tab Documented by: CAYDEN Vital Signs Vital signs: Vital Signs - 8 hr 09/09/20 23:47 Temperature 98.2 F Pulse Rate 83 Respiratory Rate 16 Blood Pressure 148/94 H Pulse Oximetry 100 MDM - Abdominal Pain Medical Records Attestation: I reviewed the patient's medical records. Lab Data Attestation: I reviewed the patient's lab results. Point of care testing: Point of Care Testing Test Results Negative Urine Dip Bedside Urine Glucose Negative Bedside Urine Bilirubin - Negative Bedside Urine Ketone - Negative Urine Specific [place] 1.015 Bedside Urine Occult Blood - Negative Bedside Urine pH 6.0 Bedside Urine Protein - Negative Bedside Urine Urobilinogen - Negative Bedside Urine Nitrite - Negative Bedside Urine Leukocytes - Negative Esterase MDM Narrative Medical decision making narrative: 25-year-old woman with low abdominal pain now beginning to have bladder pain and noted to have hematuria without bacteria or white cells on urine dip. She has no other explanation for the mild hematuria and no evidence of pelvic inflammatory disease. Certainly the possibility of interstitial cystitis is there. With shared decision-making we opted to place her on a 3 day course of Septra to see if this resolved her symptoms. She is not and does not have adnexal tenderness appreciated on physical exam to suggest ovarian torsion. If the antibiotics do not resolve her symptoms she will follow-up with her primary care physician. She is safe for home discharge Discharge Plan Departure Patient Disposition: Home Clinical Impression: Acute suprapubic pain Instructions: DI for Urinary Tract Infection (UTI) Activity Restrictions/Additional Instructions: Thank you for coming in today Your urine dip was completely normal today On your physical exam you clearly had simple bladder pain only. There was no pain around your uterus to suggest pelvic inflammatory disease. There are no rashes or discharge around your vagina. I am going to suggest that we go ahead and treat this as a developing bladder infection. 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 Your urine has been cultured. I am also going to check for gonorrhea and chlamydia in your urine. We will let you know if there is any findings or need to change antibiotics If you find that you are getting worse, please feel free to return to the ER for further evaluation Prescriptions: New sulfamethoxazole-trimethoprim [Bactrim DS] 800-160 mg tablet 1 tab PO BID 3 Days Qty: 6 RF: 0 No Action clotrimazole 1 % cream 1 applic topical BID 28 Days Qty: 28 RF: 2 sumatriptan succinate [Imitrex] 25 mg tablet 25 mg PO ONCE Qty: 10 RF: 0 ibuprofen 800 mg tablet 800 mg PO TID Qty: 30 RF: 0 metformin 500 mg tablet 500 mg PO BID Qty: 60 RF: 1 metronidazole [MetroCream] 0.75 % cream 1 applictn TOP DAILY Qty: 45 RF: 0 hydrocodone-acetaminophen 5-325 mg tablet 1 tab PO Q6H PRN (Reason: pain) Qty: 10 RF: 0 ondansetron 4 mg tablet,disintegrating 4 mg PO Q8H PRN (Reason: nausea and vomiting) Qty: 10 RF: 0 Referrals: Candice Leon DO [Primary Care Provider] -
[2020-09-10] MEDS: TRIMETH/SULFA 160/800 (DS) TABLET 1 TAB PO (00:35)
== END 2020-09-10 00:42 | disposition home or self-care (01) ==
PROVIDERS: Emergency Provider Emergency Medicine; PCP Family Medicine
DX: R10.2 Pelvic and perineal pain (principal)
CPT/HCPCS: 81003; 81025; 99283

== ENCOUNTER 2020-09-10 05:27 | Emergency (ER) | payer OTHER, MEDICAID, SELFPAY ==
[2020-09-10 05:30] VITALS: BP 130/81; PULSE 98; RESP 18; TEMP 36.9; O2SAT 98; BMI 22.4
--- NOTE | 2020-09-10 05:46 | ED_ITS ---
HPI - Allergic Reaction General Chief complaint: Allergic Reaction Stated complaint: poss alergy to antibiotic/upper lip swollen Time Seen by Provider: 09/10/20 05:30 Source: patient Mode of arrival: Ambulatory History of Present Illness HPI narrative: 25-year-old woman who was seen a couple of hours ago with significant bladder pain and treated presumptively for a urinary tract infection with Septra. She is given a 1st dose in the emergency department. Shortly after getting home going to sleep she woke up to void and noticed that her lips were swollen and numb. She did not report any difficulty breathing, tongue or posterior pharyngeal swelling. She took Benadryl at home and comes into the emergency room for re-evaluation. Upon arrival in the emergency room, about an hour after taking the oral Benadryl, she is noticing that the lip swelling and paresthesia is receiving significantly. Related Data Previous Rx's Medication Instructions Recorded metronidazole 0.75 % topical cream 1 applictn TOP DAILY #45 gram 10/06/19 sumatriptan succinate 25 mg tablet 25 mg PO ONCE #10 tab 05/01/20 ibuprofen 800 mg tablet 800 mg PO TID #30 tab 05/02/20 metformin 500 mg tablet 500 mg PO BID #60 tab 05/04/20 clotrimazole 1 % topical cream 1 applic TOPICAL BID 28 Days #28 g 08/26/20 hydrocodone-acetaminophen 1 tab PO Q6H PRN #10 tab 09/01/20 ondansetron 4 mg PO Q8H PRN #10 tab 09/01/20 cephalexin 500 mg PO TID 5 Days #15 cap 09/10/20 sulfamethoxazole-trimethoprim 1 tab PO BID 3 Days #6 tab 09/10/20 [Bactrim DS] Allergies Allergy/AdvReac Type Severity Reaction Status Date / Time Sulfa (Sulfonamide Allergy Swelling Verified 09/10/20 05:42 Antibiotics) of Lip/Tongue/Throat Review of Systems Review of Systems Narrative: All systems reviewed and are unremarkable except as noted in HPI Patient History Medical History Anxiety (11/16/15) Behcet triple symptom complex Congenital nasal septum deviation Depression Gastroesophageal reflux disease (12/12/16) Hirsutism History of malignant melanoma (10/26/15) Panic attack PCOS (polycystic ovarian syndrome) Recurrent urinary tract infection (12/12/16) Rosacea Rotator cuff injury Tobacco use disorder (10/26/15) Tonsillith Surgical History H/O laparoscopy (~10/29/18) No history of previous surgery S/P wisdom tooth extraction Family History Grandfather Lung cancer Mother Alcoholism Other Family history non-contributory Social History household members: significant other Smoking Status: Current every day smoker alcohol intake: current substance use type: marijuana Smoking Status: Current every day smoker tobacco type: cigarettes alcohol intake frequency: a few times a week Alcohol type: wine Substance Use Type: marijuana Exam Narrative Exam Narrative: General: Alert appropriate in no acute distress HEENT: Some minor left upper lip edema and minor swelling at the angle of the lip on the left side. No tongue swelling. No pharyngeal swelling. Respiratory: Able to speak in full sentences, no obvious respiratory distress. No wheezing Skin: Slight flushing over the anterior upper chest but no urticarial type rash is appreciated, warm and dry Neurologic: Grossly intact no obvious asymmetries or abnormalities Psych: appropriate insight and affect, cooperative Initial Vital Signs Initial Vital Signs: Vital Signs Temperature 98.5 F 09/10/20 05:30 Pulse Rate 98 H 09/10/20 05:30 Respiratory Rate 18 09/10/20 05:30 Blood Pressure 130/81 09/10/20 05:30 Pulse Oximetry 98 09/10/20 05:30 Course Vital Signs Vital signs: Vital Signs - 8 hr 09/10/20 05:30 Temperature 98.5 F Pulse Rate 98 H Respiratory Rate 18 Blood Pressure 130/81 Pulse Oximetry 98 MDM - Allergic Reaction MDM Narrative Medical decision making narrative: 25-year-old woman with an apparent allergic reaction to presumably Septra. Symptoms are appropriately diminishing after taking oral Benadryl and there is no evidence of respiratory distress. She will be safe to go home and will have her not lemon picker the Septra prescription and a prescription for cephalexin is electronically transmitted instead. Sulfa will be listed as an official allergy Discharge Plan Departure Patient Disposition: Home Clinical Impression: Allergic reaction due to antibacterial drug Instructions: DI for Interstitial Cystitis, DI for Adverse Drug Reaction -- Allergic Activity Restrictions/Additional Instructions: I am so sorry you had come back today. We are going to officially list sulfa as of medication allergy for you. Sulfa medications include Bactrim, Septra. If you ever need to be on a water pill, hydrochlorothiazide will often causes allergic reactions as well So, please do not lemon picker the Bactrim prescription from [facility]. A new prescription for cephalexin that has been electronically sent to [facility] for you. Will give you a prescription for cephalexin to take 3 times a day for the next 5 days. If your symptoms do not completely go away, please consider talking to your primary care doctor about the possibility of interstitial cystitis as a diagnosis for your recurrent bladder symptoms. Prescriptions: New cephalexin 500 mg capsule 500 mg PO TID 5 Days Qty: 15 RF: 0 No Action clotrimazole 1 % cream 1 applic topical BID 28 Days Qty: 28 RF: 2 sumatriptan succinate [Imitrex] 25 mg tablet 25 mg PO ONCE Qty: 10 RF: 0 ibuprofen 800 mg tablet 800 mg PO TID Qty: 30 RF: 0 metformin 500 mg tablet 500 mg PO BID Qty: 60 RF: 1 metronidazole [MetroCream] 0.75 % cream 1 applictn TOP DAILY Qty: 45 RF: 0 hydrocodone-acetaminophen 5-325 mg tablet 1 tab PO Q6H PRN (Reason: pain) Qty: 10 RF: 0 ondansetron 4 mg tablet,disintegrating 4 mg PO Q8H PRN (Reason: nausea and vomiting) Qty: 10 RF: 0 sulfamethoxazole-trimethoprim [Bactrim DS] 800-160 mg tablet 1 tab PO BID 3 Days Qty: 6 RF: 0 Referrals: Candice Leon DO [Primary Care Provider] -
== END 2020-09-10 05:52 | disposition home or self-care (01) ==
PROVIDERS: Emergency Provider Emergency Medicine; PCP Family Medicine
DX: T78.3XXA Angioneurotic edema, initial encounter (principal); T36.8X5A Adverse effect of other systemic antibiotics, initial encounter
CPT/HCPCS: 99281

== ENCOUNTER → 2020-11-24 10:52 | Outpatient (CLI) | payer OTHER, MEDICAID, SELFPAY | PROVIDERS: PCP Family Medicine; Referring Provider Physician Assistant; Visit Provider Physician Assistant | DX: N89.8 Other specified noninflammatory disorders of vagina (principal) | CPT/HCPCS: 87210 ==

== ENCOUNTER → 2023-05-07 11:52 | Outpatient (CLI) | payer OTHER, MEDICAID, SELFPAY ==
[2023-05-07 12:45] LABS: Add Manual Diff / Slide Review NO; Basophils Absolute Auto 100 /uL (0-100); Basophils Percent Auto 1.1 % (0-2); Eosinophils Absolute Auto 100 /uL (0-450); Eosinophils Percent Auto 1.2 % (2-4); Hematocrit 40.5 % (36-46); Hemoglobin 13.5 g/dL (12.0-16.0); Lymphocytes Absolute Auto 2000 /uL (1100-4500); Lymphocytes Percent Auto 35.9 % (25-40); Mean Corpuscular HGB Conc 33.2 % (30-36); Mean Corpuscular Hemoglobin 29.9 PG (26-34); Mean Corpuscular Volume 90.1 fL (80-100); Monocytes Absolute Auto 500 /uL (0-900); Monocytes Percent Auto 8.4 % (3-14); Neutrophils Absolute Auto 3000 /uL (1500-7000); Neutrophils Percent Auto 53.4 % (50-75); Platelet Count 334 X10^3/uL (150-400); Red Blood Cell Count 4.49 X10^6/uL (4.0-5.2); Red Cell Distribution Width 15.3 % (11.6-14.8); White Blood Cell Count 5.6 X10^3/uL (4.5-11.0)
[2023-05-07 13:02] LABS: Alanine Aminotransferase 52 IU/L (<35); Albumin 4.4 g/dL (3.5-5.0); Albumin Globulin Ratio 1.5 (1.0-2.8); Alkaline Phosphatase 107 U/L (38-126); Aspartate Aminotransferase 29 IU/L (14-36); BUN Creatinine Ratio 9.2 (6-22); Bilirubin Total 0.5 mg/dL (0.2-1.3); Blood Urea Nitrogen 6 mg/dL (7-17); Calcium 9.3 mg/dL (8.4-10.2); Carbon Dioxide 25 mmol/L (22-32); Chloride 102 mmol/L (98-107); Estimated Glomerular Filt Rate > 60 mL/min (>60); Glucose 87 mg/dL (70-100); HEMOLYSIS < 15 (0-50); Potassium 4.1 mmol/L (3.4-5.1); Sodium 138 mmol/L (137-145); Total Protein 7.4 g/dL (6.3-8.2)
[2023-05-07 13:32] LABS: TSH w/ Reflex to FT4 1.95 uIU/mL (0.47-4.68)
== END ==
PROVIDERS: PCP Family Medicine; Referring Provider Physician Assistant; Visit Provider Physician Assistant
DX: F41.9 Anxiety disorder, unspecified (principal)
CPT/HCPCS: 36415; 80053; 84443; 85025

== ENCOUNTER 2024-04-15 07:29 | Day surgery (SDC) | payer OTHER, SELFPAY ==
[2024-04-12 10:43] VITALS: BMI 30.7
[2024-04-15] VITALS (10 sets, daily range): BP systolic 128–154; BP diastolic 82–98; PULSE 77–95; RESP 14–22; TEMP 36.7–37.2; O2SAT 94–100; BMI 29.9
--- NOTE | 2024-04-15 | PATH_ITS ---
[facility] Accession Number: [id number] No. of containers..01 Tissue . 01 Material submitted: . fallopian tube - BILATERAL FALLOPIAN TUBES . 01 Diagnosis: BILATERAL FALLOPIAN TUBES: Longer-described fallopian tube: Portions of fimbriated fallopian tube epithelium present (no significant aytpia). However, no distinct fallopian tube lumen or fallopian tube segment is identified. The specimen consists predominantly of fibromuscular and fibrovascular tissue (specimen entirely submitted). Runge-described fallopian tube, complete cross sections, with no significant atypia. [facility] 04/21/2024 1515 Local . 01 Comment: Dr. Mitzy Fernández discussed results with Dr. Powell' nurse, Carol, on 04-21-24 at approximately 3:12 p.m. . 01 Electronically signed: . Mitzy Fernández MD, Pathologist NPI- [id number] . 01 Gross description: . Received in formalin with two identifiers and bilateral fallopian tubes, are two fimbriated fallopian tubes (6.4 x 0.8 cm and 8.9 x 0.3 cm). Both tubes have violaceous smooth serosa with no cysts identified. The lumen are stellate and unremarkable. Hand Leather Trimmer sectiones to include one-half of bisected fimbriae and cross-sections are submitted as follows: A1: Longer fallopian tube. A2: Runge fallopian tube. ([id number]) . Additional cross sections of the longer fallopian tube are submitted in A3. ([id number]) ([id number]) . The remaining longer tube is submitted in A4-A6. ([id number]) /[facility] 04/20/2024 1852 Local . 01 Pathologist provided ICD-10: Z30.2 . 01 CPT . 302567, [id number] Specimen Comment: A courtesy copy of this report has been sent to [facility] Pathology Performed at: [address] [address], [place], [place] [id number] MD Chris Pedro MD Phone: [phone]
[2024-04-15] MEDS: LACTATED RINGERS 1,000 ML 42 ML IV (08:39)
--- NOTE | 2024-04-15 09:46 | PM.PREOP ---
Pre-operative Note Interval Note History & Physical reviewed/Exam performed by Physician: Yes Changes to H&P: No H&P completed within 30 days and has changed as indicated here:: see H&P from 04/11/24
[2024-04-15] MEDS: BUPIVACAINE 0.25% (PF) VIAL 30 ML INJ (10:05)
--- NOTE | 2024-04-15 10:50 | P.OP_ITS ---
Operative Date/Time/Diagnoses Date of procedure: 04/15/24 Time of procedure: 09:45 Pre-op diagnosis: 1. Undesired future fertility 2. Nexplanon in place Post-op diagnosis: same Procedure & Clinicians Procedure: Nexplanon removal Laparoscopic bilateral salpingectomy Same procedure as scheduled: Yes Indications: 29yo G0 with undesired future fertility, requesting sterilization. After adequate counseling, patient desired to proceed with the procedure. She understands that this procedure is permanent. Surgeon: Rox Powell Click Yes if Unassisted: Yes Anesthesia Type: General Operative Notes Findings: Normal appearing uterus, bilateral fallopian tubes, and bilateral ovaries. Left ovary noted to have a 2-3cm simple cyst. Normal appearing liver edge and gallbladder. Nexplanon palpable in the left upper arm. Specimen(s): other (bilateral fallopian tubes) Applied: catheter Estimated Blood Loss (mL): 5 Blood products transfused: none Procedure in detail: The risks, benefits, indications and alternatives of the procedure were reviewed with the patient and informed consent was obtained. The pt was taken to the operating room where general anesthesia was obtained without difficulty. The pt was then placed in the low lithotomy position using gel-padded Tom Stirrups. Sequential compression devices were placed bilaterally for VTE prophylaxis. Her left upper arm was exposed for surgery and prepped with betadine. A 0.5 cm incision was made with the scalpel over the distal tip of the Nexplanon. The capsule was manipulated through the incision where it was grasped, freed of connective tissue, then easily withdrawn intact.?? A Steristrip and pressure dressing were applied. Pt was then prepped and draped in the usual sterile fashion. A Ward catheter was placed without difficulty for bladder drainage during the case. Attention was then turned to the patient?s abdomen where a 5mm skin incision was made in the inferior aspect of the umbilicus after injection of 0.25% marcaine. A 5mm trocar and sleeve were then carefully introduced into the peritoneal cavity under direct visualization at a 90-degree angle while tenting up the abdominal wall. Intra-peritoneal placement was confirmed under direct visualization with the laparoscope with entry pressure <5mmHg. A pneumoperitoneum was obtained with several liters of CO2 gas, maximum pressure of 15mmHg. Upon entry into the peritoneal cavity, structures immediately below the incision were inspected and found to be free of injury. Two additional 5mm trocars were placed in the left lateral aspect of the abdominal wall under direct laparoscopic visualization after injection of 0.25% marcaine at each site. A survey of the pt?s abdomen and pelvis was notable for the above findings. Using an atraumatic grasper, the left fallopian tube was tented up. In a stepwise fashion, the left fallopian tube was removed from the fimbriated end to the cornual end with ultimate excision of the fallopian tube using the Ligasure. The same procedure was performed on the patient?s right side to excise the right fallopian tube. Both fallopian tubes were removed from the abdomen via the lateral port sites. All pedicles were re-examined and noted to be hemostatic. During the procedure, the left ovarian simple cyst ruptured with clear fluid, and the fluid was suctioned out of the pelvis. The gas was then turned off and all CO2 was removed from the pt?s abdomen. The trocars were removed. The skin incision sites were reapproximated using 4-0 mon ocryl and dermabond. The ward catheter was removed from the bladder. All instruments were confirmed to be removed from the vagina. At the completion of the case the sponge and needle counts were correct x 2. The patient tolerated the procedure well and was taken to the PACU in stable condition. Complications: none Post-operative Condition: stable Disposition: PACU Plan for aftercare: Discharge to home with follow-up in clinic as scheduled.
[2024-04-15] MEDS: fentaNYL 100 MCG/2 ML INJ IV ×2 (11:00→11:25)
[2024-04-15] MEDS: OXYCODONE IR 5 MG TABLET PO (11:09)
== END 2024-04-15 12:10 | disposition home or self-care (01) ==
PROVIDERS: PCP Family Medicine; Referring Provider Student in an Organized Health Care Education/Training Program; Visit Provider Student in an Organized Health Care Education/Training Program
PROC: 0UT74ZZ Resection of Bilateral Fallopian Tubes, Percutaneous Endoscopic Approach (ICD-10-PCS; CPT 58661; principal; 2024-04-15 09:45)
DX: Z30.2 Encounter for sterilization (principal); Z30.46 Encounter for surveillance of implantable subdermal contraceptive; N83.292 Other ovarian cyst, left side; F17.290 Nicotine dependence, other tobacco product, uncomplicated; Z85.820 Personal history of malignant melanoma of skin
CPT/HCPCS: 58661; 11982; J1100; J1885; J2405; J2704; J3010

== ENCOUNTER → 2024-07-28 16:02 | Outpatient (CLI) | payer OTHER, SELFPAY ==
[2024-07-28 16:21] LABS: Add Manual Diff / Slide Review NO; Basophils Absolute Auto 0 /uL (0-100); Basophils Percent Auto 0.6 % (0-2); Eosinophils Absolute Auto 0 /uL (0-450); Eosinophils Percent Auto 0.6 % (2-4); Hematocrit 41.5 % (36-46); Hemoglobin 13.9 g/dL (12.0-16.0); Lymphocytes Absolute Auto 1800 /uL (1100-4500); Lymphocytes Percent Auto 31.5 % (25-40); Mean Corpuscular HGB Conc 33.6 % (30-36); Mean Corpuscular Hemoglobin 31.3 PG (26-34); Mean Corpuscular Volume 93.3 fL (80-100); Monocytes Absolute Auto 400 /uL (0-900); Neutrophils Absolute Auto 3400 /uL (1500-7000); Neutrophils Percent Auto 60.3 % (50-75); Platelet Count 357 X10^3/uL (150-400); Red Blood Cell Count 4.45 X10^6/uL (4.0-5.2); Red Cell Distribution Width 13.8 % (11.6-14.8); White Blood Cell Count 5.7 X10^3/uL (4.5-11.0)
[2024-07-28 16:51] LABS: HEMOLYSIS < 15 (0-50); Iron 108 ug/dL (37-170)
[2024-07-28 17:02] LABS: Percent Iron Saturation 31 % (15-50); Total Iron Binding Capacity 346 ug/dL (265-497); Transferrin 311 mg/dL (206-381)
[2024-07-28 17:29] LABS: Ferritin 30 ng/mL (6-137)
== END ==
LOC: LAB 16:03
PROVIDERS: PCP Family Medicine; Referring Provider Family Medicine; Visit Provider Family Medicine
DX: G25.81 Restless legs syndrome (principal)
CPT/HCPCS: 36415; 82728; 83540; 83550; 85025